=== PATIENT | female | born 1945 | race Caucasian/White ===

== ENCOUNTER 2025-03-05 22:22 | Inpatient (IN) | payer MEDICARE ==
[~2025-03-05] VITALS: Ht 167.6 cm; Wt 59.4 kg
[2025-03-05] MEDS ORDERED: HYDROMORPHONE 1 MG/1 ML DISP.SYRIN ONE ×2 (23:08→23:48)
[2025-03-05] MEDS ORDERED: ONDANSETRON 4 MG/2 ML VIAL ONE (23:09)
[2025-03-05 23:14] LABS: BASOPHILS # (AUTO) 0.1 K/UL (0.0-0.2); BASOPHILS % (AUTO) 0.3 % (0.0-2.0); HEMATOCRIT 38.8 % (31.2-41.9); HEMOGLOBIN 12.8 g/dL (10.9-14.3); LYMPHOCYTES # (AUTO) 1.1 K/uL (0.8-4.8); LYMPHOCYTES % (AUTO) 5.1 % (20.5-51.5); MEAN CORPUSCULAR HEMOGLOBIN 32.7 uug (24.7-32.8); MEAN CORPUSCULAR HGB CONC 33 g/dL (32.3-35.6); MEAN CORPUSCULAR VOLUME 99.5 fL (75.5-95.3); MONOCYTES # (AUTO) 0.8 K/uL (0.1-1.30); NEUTROPHILS # (AUTO) 19.2 K/uL (1.8-8.9); NEUTROPHILS % (AUTO) 90.6 % (38.5-71.5); PLATELET COUNT (AUTO) 604 K/uL (179-408); WHITE BLOOD COUNT (AUTO) 21.2 K/uL (3.8-11.8)
[2025-03-05 23:17] LABS: DIFFERENTIAL COMMENT 1
[2025-03-05] MEDS: ONDANSETRON 4 MG/2 ML VIAL IV ONE (23:19)
[2025-03-05 23:20] LABS: CALCIUM 10.7 mg/dL (8.5-10.1); CARBON DIOXIDE 30 mmol/L (21-32); CHLORIDE 96 mmol/L (98-107); CREATININE 1.2 mg/dL (0.6-1.3); GLUCOSE 144 mg/dL (74-106); POTASSIUM 4.2 mmol/L (3.5-5.1); SODIUM SERUM 139 mmol/L (136-145); UREA NITROGEN, BLOOD 32 mg/dL (7-18)
[2025-03-05] MEDS: IV NORMAL SALINE 1000 ML BAG IV ONE ×2 (23:20→23:55)
[2025-03-05] MEDS: HYDROMORPHONE 1 MG/1 ML DISP.SYRIN IV ONE ×2 (23:20→23:56)
[2025-03-05 23:25] LABS: ALANINE AMINOTRANSFERASE 30 U/L (14-59); ALBUMIN 2.7 g/dL (3.4-5.0); ALKALINE PHOSPHATASE 159 U/L (50-136); ASPARTATE AMINOTRANSFERASE 29 U/L (15-37); BILIRUBIN,DIRECT 0.3 mg/dL (0.0-0.2); BILIRUBIN,TOTAL 0.8 mg/dL (0.2-1.0); LIPASE 16 U/L (16-77); TOTAL PROTEIN, SERUM 8.6 g/dL (6.4-8.2)
[2025-03-05 23:48] LABS: LACTIC ACID 5.1 mmol/L (0.4-2.0)
[2025-03-05] MEDS ORDERED: CEFTRIAXONE /D5W 50ML IVPB **ER PYXIS IV ONE (23:48)
[2025-03-05] MEDS ORDERED: METRONIDAZOLE 500 MG/NS 100ML 100 ML IV ONE (23:48)
[2025-03-05] MEDS: CEFTRIAXONE 1 G in IV DEXTROSE 5% 50 ML IV ONE (23:55)
[2025-03-06] VITALS (26 sets, daily range): BP systolic 108–163; BP diastolic 65–111; TEMP 97.7–98; O2SAT 91–98
[2025-03-06] MEDS: METRONIDAZOLE 500 MG/NS 100 ML PIGGYBACK IV ONE (00:34)
[2025-03-06] MEDS ORDERED: MORPHINE SULFATE 4 MG/1 ML DISP.SYRIN ONE ×2 (00:57→03:38)
[2025-03-06] MEDS: MORPHINE SULFATE 4 MG/1 ML DISP.SYRIN IV ONE ×2 (01:00→03:45)
[2025-03-06 01:01] LABS: *BILIRUBIN,URIN NEGATIVE (NEGATIVE); *BLOOD, URINE NEGATIVE (NEGATIVE); *CLARITY,URINE CLEAR (CLEAR); *COLOR,URINE YELLOW (YELLOW); *KETONES,URINE NEGATIVE (NEGATIVE); *PROTEIN,URINE 2+ (NEGATIVE); *UROBILINOGEN,URINE 0.2 E.U./dl (NORMAL); LEUKOCYTE ESTERASE ,URINE NEGATIVE (NEGATIVE); NITRITE, URINE NEGATIVE (NEGATIVE); UGLUCOSE NEGATIVE (NEGATIVE)
[2025-03-06] MEDS ORDERED: LORAZEPAM 2 MG/1 ML VIAL ONE ×2 (01:49→05:00)
[2025-03-06] MEDS: LORAZEPAM 2 MG/1 ML VIAL IV ONE ×2 (01:51→05:18)
[2025-03-06] MEDS ORDERED: MAGNESIUM HYDROXIDE 30 ML LIQUID UDC PO PRN (03:15)
[2025-03-06] MEDS ORDERED: REMEDY ESSENTIAL ZINC PASTE 113 GM TP PRN (03:15)
[2025-03-06] MEDS ORDERED: METOCLOPRAMIDE HCL 10 MG/2 ML VIAL ONE (03:37)
[2025-03-06] MEDS: METOCLOPRAMIDE HCL 10 MG/2 ML VIAL IV ONE (03:45)
[2025-03-06] MEDS: PIPERACILLIN SODIUM/TAZOBACTAM 3.375 G in IV DEXTROSE 5% 50 ML IV SCH (06:00)
[2025-03-06] MEDS ORDERED: DIGOXIN 500 MCG/2 ML AMP ONE (07:49)
[2025-03-06] MEDS: DIGOXIN 500 MCG/2 ML AMP IV ONE (07:55)
[2025-03-06] MEDS ORDERED: PIPERACILLIN/TAZOBACTAM/D5W 50 ML IV ONE (07:57)
[2025-03-06] MEDS ORDERED: MAGNESIUM SULFATE/D5W 200 ML ONE ×2 (07:58→21:36)
[2025-03-06] MEDS: MAGNESIUM SULFATE/D5W 100 ML IV ONE (08:07)
[2025-03-06] MEDS ORDERED: ONDANSETRON 4 MG/2 ML VIAL ONE (08:56)
[2025-03-06] MEDS ORDERED: MORPHINE SULFATE 2 MG/1 ML DISP.SYRIN ONE (08:56)
[2025-03-06] MEDS: MORPHINE SULFATE 2 MG/1 ML DISP.SYRIN IV ONE (09:01)
[2025-03-06] MEDS: ONDANSETRON 4 MG/2 ML VIAL IV PRN (09:02)
[2025-03-06] MEDS ORDERED: DIATR MEGLU/DIATRIZOATE SODIUM 30 ML BOTTLE ONE (10:23)
[2025-03-06] MEDS ORDERED: DILTIAZEM HCL 25 MG IV ONE (10:24)
[2025-03-06] MEDS ORDERED: ENOXAPARIN SODIUM 40 MG/0.4 ML DISP.SYRIN SQ ONE (10:24)
[2025-03-06] MEDS: ENOXAPARIN SODIUM 40 MG/0.4 ML DISP.SYRIN SQ SCH (10:26)
[2025-03-06] MEDS: DILTIAZEM HCL 25 MG IV IV ONE (10:35)
[2025-03-06] MEDS ORDERED: OMEP40CA21 PO (12:29)
[2025-03-06] MEDS ORDERED: DOXY100C5 PO (12:29)
[2025-03-06] MEDS ORDERED: DOCU100C58 PO (12:29)
[2025-03-06] MEDS ORDERED: CHOL500062 PO (12:29)
[2025-03-06] MEDS ORDERED: ONDA4TAB11 PO (12:29)
[2025-03-06] MEDS ORDERED: SUCR1TAB PO (12:29)
[2025-03-06] MEDS ORDERED: HYDR-3972 PO (12:29)
[2025-03-06] MEDS ORDERED: [UNRECOGNIZED DRUG - OTHER] PO (12:34)
[2025-03-06] MEDS: MORPHINE SULFATE 2 MG/1 ML DISP.SYRIN IV PRN ×2 (13:30→20:48)
[2025-03-06] MEDS: PIPERACILLIN SODIUM/TAZOBACTAM 3.375 G in IV DEXTROSE 5% 100 ML IV SCH (13:49)
[2025-03-06] MEDS: HYDROMORPHONE 1 MG/1 ML DISP.SYRIN IV ONE (14:49)
[2025-03-06] MEDS ORDERED: SWABABLE VALVE TRANSFER SET EA MC ONE (15:47)
[2025-03-06] MEDS ORDERED: IOHEXOL 350 100 ML INFUS..BTL ONE (15:47)
[2025-03-06] MEDS ORDERED: IV NORMAL SALINE 250 ML IV ONE (15:48)
[2025-03-06] MEDS: IV NS 1000 ML 1,000 ML IV PRN ×2 (16:37→20:27)
[2025-03-06 20:23] LABS: CARBON DIOXIDE 26 mmol/L (21-32); CHLORIDE 106 mmol/L (98-107); CREATININE 1.2 mg/dL (0.6-1.3); GLUCOSE 129 mg/dL (74-106); POTASSIUM 4.5 mmol/L (3.5-5.1); SODIUM SERUM 145 mmol/L (136-145); UREA NITROGEN, BLOOD 42 mg/dL (7-18)
[2025-03-06 20:24] LABS: HEMATOCRIT 40.5 % (31.2-41.9); HEMOGLOBIN 13.3 g/dL (10.9-14.3); LYMPHOCYTES # (AUTO) 0.6 K/uL (0.8-4.8); LYMPHOCYTES % (AUTO) 1.9 % (20.5-51.5); MEAN CORPUSCULAR HEMOGLOBIN 32.8 uug (24.7-32.8); MEAN CORPUSCULAR HGB CONC 33 g/dL (32.3-35.6); MEAN CORPUSCULAR VOLUME 99.8 fL (75.5-95.3); MONOCYTES # (AUTO) 0.7 K/uL (0.1-1.30); MONOCYTES % (AUTO) 2.2 % (0.0-11.0); NEUTROPHILS # (AUTO) 30.8 K/uL (1.8-8.9); NEUTROPHILS % (AUTO) 95.9 % (38.5-71.5); PLATELET COUNT (AUTO) 493 K/uL (179-408); RED BLOOD CELL COUNT(AUTO) 4.06 MIL/uL (3.63-4.92); RED CELL DISTRIBUTION WIDTH 14.3 % (12.3-17.7)
[2025-03-06 20:25] LABS: DIFFERENTIAL COMMENT 1
[2025-03-06 20:28] LABS: WHITE BLOOD COUNT (AUTO) 32.1 K/uL (3.8-11.8)
[2025-03-06 21:36] LABS: BAND % (MANUAL) 13 % (0-10); LYMPHOCYTES % (MANUAL) 2 % (20-40); MONOCYTES % (MANUAL) 4 % (2-10); NEUTROPHILS % (MANUAL) 81 % (42-75); PLATELET ESTIMATE INCREASED
[2025-03-06] MEDS ORDERED: FENTANYL CITRATE 250 MCG/5 ML AMPUL ONE (21:36)
[2025-03-06] MEDS ORDERED: KETAMINE HCL 500 MG/5 ML VIAL ONE (21:36)
[2025-03-06] MEDS ORDERED: MIDAZOLAM HCL 2 MG/2 ML VIAL ONE (21:36)
[2025-03-06] MEDS ORDERED: LIDOCAINE 2% (GLYDO= UROJET) 10 ML JELLY MM ONE (21:36)
[2025-03-06 21:37] LABS: ANISOCYTOSIS 1+
[2025-03-06] MEDS ORDERED: ALBUMIN HUMAN 5% 500 ML ONE (21:37)
[2025-03-06] MEDS ORDERED: ROCURONIUM BROMIDE 50 MG/5 ML VIAL ONE (21:37)
[2025-03-06] MEDS ORDERED: MINERAL OIL/PETROLAT OPHT OINT 3.5 GM TUBE ONE (22:12)
[2025-03-06] MEDS ORDERED: CALCIUM GLUCONATE 1 GM/10 ML VIAL IV ONE (22:24)
[2025-03-06] MEDS ORDERED: NOREPINEPHRINE BITARTRATE 4 MG/4 ML VIAL IV ONE (22:24)
[2025-03-06] MEDS ORDERED: CALCIUM CHLORIDE 1 GM/10 ML DISP.SYRIN IVP ONE (22:25)
[2025-03-06] MEDS ORDERED: ALBUMIN HUMAN 5% 250 ML ONE (23:04)
[2025-03-07] VITALS (46 sets, daily range): BP systolic 89–205; BP diastolic 55–104; TEMP 97.5–102.8; O2SAT 97–100
[2025-03-07] MEDS ORDERED: NOREPINEPHRINE 8MG/NS 250ML 250 ML IV PRN ×2 (00:45)
[2025-03-07] MEDS ORDERED: PROPOFOL 100 ML IV PRN (00:45)
[2025-03-07] MEDS: PROPOFOL 100 ML IV PRN ×2 (00:49→20:32)
[2025-03-07] MEDS: IV LACTATED RINGERS SOLUTION 1,000 ML BAG IV ONE (02:48)
[2025-03-07 03:01] LABS: BASOPHILS % (AUTO) 0.2 % (0.0-2.0); EOSINOPHILS % (AUTO) 0.1 % (0.0-7.0); HEMATOCRIT 30.1 % (31.2-41.9); HEMOGLOBIN 10.1 g/dL (10.9-14.3); LYMPHOCYTES # (AUTO) 0.4 K/uL (0.8-4.8); LYMPHOCYTES % (AUTO) 1.7 % (20.5-51.5); MEAN CORPUSCULAR HEMOGLOBIN 33.4 uug (24.7-32.8); MEAN CORPUSCULAR HGB CONC 34 g/dL (32.3-35.6); MEAN CORPUSCULAR VOLUME 99.3 fL (75.5-95.3); MONOCYTES # (AUTO) 0.6 K/uL (0.1-1.30); MONOCYTES % (AUTO) 2.3 % (0.0-11.0); NEUTROPHILS # (AUTO) 25.2 K/uL (1.8-8.9); NEUTROPHILS % (AUTO) 95.7 % (38.5-71.5); PLATELET COUNT (AUTO) 386 K/uL (179-408); RED BLOOD CELL COUNT(AUTO) 3.04 MIL/uL (3.63-4.92); RED CELL DISTRIBUTION WIDTH 14.3 % (12.3-17.7); WHITE BLOOD COUNT (AUTO) 26.3 K/uL (3.8-11.8)
[2025-03-07 03:06] LABS: DIFFERENTIAL COMMENT 1
[2025-03-07] MEDS ORDERED: AMIODARONE HCL 150 MG/3 ML VIAL IV ONE (03:46)
[2025-03-07] MEDS: AMIODARONE HCL IV 150 MG in IV DEXTROSE 5% 100 ML IV ONE (03:56)
[2025-03-07 04:33] LABS: BASOPHILS % (AUTO) 0.1 % (0.0-2.0); HEMATOCRIT 29.6 % (31.2-41.9); HEMOGLOBIN 10.3 g/dL (10.9-14.3); LYMPHOCYTES # (AUTO) 0.5 K/uL (0.8-4.8); LYMPHOCYTES % (AUTO) 1.7 % (20.5-51.5); MEAN CORPUSCULAR HEMOGLOBIN 33.9 uug (24.7-32.8); MEAN CORPUSCULAR HGB CONC 35 g/dL (32.3-35.6); MEAN CORPUSCULAR VOLUME 97.8 fL (75.5-95.3); MONOCYTES # (AUTO) 0.6 K/uL (0.1-1.30); MONOCYTES % (AUTO) 2.1 % (0.0-11.0); NEUTROPHILS # (AUTO) 26.2 K/uL (1.8-8.9); NEUTROPHILS % (AUTO) 96.1 % (38.5-71.5); PLATELET COUNT (AUTO) 402 K/uL (179-408); RED BLOOD CELL COUNT(AUTO) 3.03 MIL/uL (3.63-4.92); RED CELL DISTRIBUTION WIDTH 14.4 % (12.3-17.7); WHITE BLOOD COUNT (AUTO) 27.3 K/uL (3.8-11.8)
[2025-03-07] MEDS: AMIODARONE HCL IV 450 MG in IV DEXTROSE 5% 250 ML IV PRN (04:46)
[2025-03-07 05:11] LABS: DIFFERENTIAL COMMENT 1
[2025-03-07 05:22] LABS: CALCIUM 9.2 mg/dL (8.5-10.1); CARBON DIOXIDE 25 mmol/L (21-32); CHLORIDE 111 mmol/L (98-107); CREATININE 1.2 mg/dL (0.6-1.3); GLUCOSE 115 mg/dL (74-106); MAGNESIUM 2.3 mg/dL (1.8-2.4); PHOSPHOROUS 5.1 mg/dL (2.5-4.9); POTASSIUM 4.4 mmol/L (3.5-5.1); SODIUM SERUM 147 mmol/L (136-145); UREA NITROGEN, BLOOD 40 mg/dL (7-18)
[2025-03-07] MEDS: MORPHINE SULFATE 2 MG/1 ML DISP.SYRIN IV ONE (05:29)
[2025-03-07 05:31] LABS: LACTIC ACID 2.2 mmol/L (0.4-2.0)
[2025-03-07] MEDS: FENTANYL CITRATE/PF 1,000 MCG in IV NORMAL SALINE 80 ML IV PRN ×2 (09:00→09:26)
[2025-03-07] MEDS: PANTOPRAZOLE SODIUM 40 MG VIAL IV SCH (12:11)
[2025-03-07] MEDS: ACETAMINOPHEN 650 MG SUPP.RECT RC PRN (13:47)
[2025-03-07 20:43] LABS: ABG BASE EXCESS 1.6 mmol/L (-2.0-3.0); ABG HCO3 22.5 mmol/L (21.0-28.0); ABG HCO3 24.5 mmol/L (21.0-28.0); ABG PCO2 33.7 mmHg (32.0-45.0); ABG PCO2 41.9 mmHg (32.0-45.0); ABG PH 7.348 (7.350-7.450); ABG PH 7.479 (7.350-7.450); ABG PO2 201.8 mmHg (83.0-108.0); ABG PO2 62.1 mmHg (83.0-108.0); ABG SITE ALINE; ABG SITE RIGHT RADIAL; ABG TOTAL HEMOGLOBIN 15.3 G/dL (12.0-16.0); ABG TOTAL HEMOGLOBIN 9.9 G/dL (12.0-16.0); AaDO2 93.5 mmHg; AaDO2 99.3 mmHg; COHb 1.2 % (0.5-1.5); COHb 2.3 % (0.5-1.5); MetHb 0.3 % (0.0-1.5); O2Hb 90.7 % (94.0-98.0); O2Hb 97.8 % (94.0-98.0); VT, ABG 450 mL
[2025-03-07 20:44] LABS: ABG BASE EXCESS -0.8 mmol/L (-2.0-3.0); ABG HCO3 22.9 mmol/L (21.0-28.0); ABG PCO2 34.2 mmHg (32.0-45.0); ABG PH 7.443 (7.350-7.450); ABG SITE ALINE; ABG TOTAL HEMOGLOBIN 11.2 G/dL (12.0-16.0); AaDO2 98.2 mmHg; COHb 1.1 % (0.5-1.5); MetHb 0.3 % (0.0-1.5); VT, ABG 450 mL
[2025-03-07] MEDS ORDERED: PROPOFOL 200 MG/20 ML BOTTLE ONE (22:00)
[2025-03-07] MEDS ORDERED: MICAFUNGIN SODIUM 100 MG VIAL IV ONE (23:16)
[2025-03-07] MEDS ORDERED: MEROPENEM 1GM/NS 100ML IVPB **ER PYXIS ONLY IV ONE (23:18)
[2025-03-07] MEDS ORDERED: VANCOMYCIN IV 200 ML ONE (23:18)
[2025-03-07] MEDS: MEROPENEM 1 G in IV NORMAL SALINE 100 ML IV SCH (23:23)
[2025-03-07] MEDS: VANCOMYCIN IV 1,000 MG in IV NORMAL SALINE 250 ML IV ONE (23:25)
[2025-03-07] MEDS: MICAFUNGIN SODIUM 100 MG in IV NORMAL SALINE 100 ML IV SCH (23:26)
[2025-03-07] MEDS: MEROPENEM 1 G in IV NORMAL SALINE 100 ML IV ONE (23:44)
[2025-03-08] VITALS (57 sets, daily range): BP systolic 102–183; BP diastolic 73–141; TEMP 97.7–98.8; O2SAT 97–100
[2025-03-08] MEDS: METOPROLOL TARTRATE 5 MG/5 ML VIAL IVP PRN (03:22)
[2025-03-08 04:49] LABS: HEMATOCRIT 26.2 % (31.2-41.9); HEMOGLOBIN 8.6 g/dL (10.9-14.3); LYMPHOCYTES # (AUTO) 0.6 K/uL (0.8-4.8); LYMPHOCYTES % (AUTO) 2.1 % (20.5-51.5); MEAN CORPUSCULAR HEMOGLOBIN 32.9 uug (24.7-32.8); MEAN CORPUSCULAR HGB CONC 33 g/dL (32.3-35.6); MEAN CORPUSCULAR VOLUME 99.5 fL (75.5-95.3); MONOCYTES # (AUTO) 0.8 K/uL (0.1-1.30); MONOCYTES % (AUTO) 2.7 % (0.0-11.0); NEUTROPHILS % (AUTO) 95.2 % (38.5-71.5); PLATELET COUNT (AUTO) 337 K/uL (179-408); RED BLOOD CELL COUNT(AUTO) 2.63 MIL/uL (3.63-4.92); RED CELL DISTRIBUTION WIDTH 14.8 % (12.3-17.7); WHITE BLOOD COUNT (AUTO) 29.4 K/uL (3.8-11.8)
[2025-03-08 05:33] LABS: DIFFERENTIAL COMMENT 1
[2025-03-08 05:42] LABS: CALCIUM 8.6 mg/dL (8.5-10.1); CARBON DIOXIDE 25 mmol/L (21-32); CHLORIDE 114 mmol/L (98-107); CREATININE 0.8 mg/dL (0.6-1.3); GLUCOSE 122 mg/dL (74-106); MAGNESIUM 2.5 mg/dL (1.8-2.4); PHOSPHOROUS 3.4 mg/dL (2.5-4.9); POTASSIUM 4.1 mmol/L (3.5-5.1); SODIUM SERUM 147 mmol/L (136-145); UREA NITROGEN, BLOOD 36 mg/dL (7-18)
[2025-03-08] MEDS: MEROPENEM 1 G in IV NORMAL SALINE 100 ML IV SCH (08:27)
[2025-03-08] MEDS ORDERED: MEROPENEM 1 G in IV NORMAL SALINE 100 ML IV SCH (09:00)
[2025-03-08 09:31] LABS: ABG BASE EXCESS -0.7 mmol/L (-2.0-3.0); ABG HCO3 24.9 mmol/L (21.0-28.0); ABG PO2 117.6 mmHg (83.0-108.0); ABG SITE LEFT RADIAL; ABG TOTAL HEMOGLOBIN 9.5 G/dL (12.0-16.0); AaDO2 98.1 mmHg; COHb 0.7 % (0.5-1.5); MetHb 0.3 % (0.0-1.5); O2Hb 97.6 % (94.0-98.0); VT, ABG 450 mL
[2025-03-08] MEDS: VANCOMYCIN HCL 750 MG in IV DEXTROSE 5% 250 ML IV SCH (09:45)
[2025-03-09] VITALS (96 sets, daily range): BP systolic 89–226; BP diastolic 66–139; TEMP 97.9–99.1; O2SAT 94–98
[2025-03-09 05:09] LABS: BASOPHILS # (AUTO) 0.1 K/UL (0.0-0.2); BASOPHILS % (AUTO) 0.3 % (0.0-2.0); DIFFERENTIAL COMMENT 0; HEMATOCRIT 23.1 % (31.2-41.9); HEMOGLOBIN 7.7 g/dL (10.9-14.3); LYMPHOCYTES # (AUTO) 0.7 K/uL (0.8-4.8); LYMPHOCYTES % (AUTO) 2.8 % (20.5-51.5); MEAN CORPUSCULAR HEMOGLOBIN 33.2 uug (24.7-32.8); MEAN CORPUSCULAR HGB CONC 33 g/dL (32.3-35.6); MONOCYTES # (AUTO) 0.8 K/uL (0.1-1.30); MONOCYTES % (AUTO) 3.2 % (0.0-11.0); NEUTROPHILS # (AUTO) 22.6 K/uL (1.8-8.9); NEUTROPHILS % (AUTO) 93.7 % (38.5-71.5); PLATELET COUNT (AUTO) 317 K/uL (179-408); RED CELL DISTRIBUTION WIDTH 14.7 % (12.3-17.7); WHITE BLOOD COUNT (AUTO) 24.1 K/uL (3.8-11.8)
[2025-03-09 05:12] LABS: CALCIUM 8.1 mg/dL (8.5-10.1); CARBON DIOXIDE 25 mmol/L (21-32); CHLORIDE 118 mmol/L (98-107); CREATININE 0.5 mg/dL (0.6-1.3); GLUCOSE 97 mg/dL (74-106); MAGNESIUM 2.1 mg/dL (1.8-2.4); PHOSPHOROUS 1.9 mg/dL (2.5-4.9); POTASSIUM 4.3 mmol/L (3.5-5.1); SODIUM SERUM 151 mmol/L (136-145); UREA NITROGEN, BLOOD 25 mg/dL (7-18)
[2025-03-09 05:15] LABS: RED BLOOD CELL COUNT(AUTO) 2.31 MIL/uL (3.63-4.92)
[2025-03-09] MEDS ORDERED: MEROPENEM 1 G in IV NORMAL SALINE 100 ML IV SCH ×2 (06:00→07:00)
[2025-03-09] MEDS: MEROPENEM 1 G in IV NORMAL SALINE 100 ML IV SCH (06:59)
[2025-03-09] MEDS: AMIODARONE HCL IV 150 MG in IV DEXTROSE 5% 100 ML IV ONE (09:23)
[2025-03-09] MEDS: AMIODARONE HCL IV 450 MG in IV DEXTROSE 5% 250 ML IV PRN (10:12)
[2025-03-09 11:10] LABS: ABG BASE EXCESS -0.8 mmol/L (-2.0-3.0); ABG HCO3 24.3 mmol/L (21.0-28.0); ABG PCO2 42.2 mmHg (32.0-45.0); ABG PH 7.378 (7.350-7.450); ABG PO2 90.6 mmHg (83.0-108.0); ABG SITE LEFT RADIAL; AaDO2 96.8 mmHg; COHb 0.7 % (0.5-1.5); MetHb 0.3 % (0.0-1.5); O2Hb 96.2 % (94.0-98.0); VT, ABG 450 mL
[2025-03-09] MEDS: ACETAMINOPHEN 325 MG TABLET PO PRN (11:51)
[2025-03-09] MEDS: NOREPINEPHRINE 8MG/NS 250ML 250 ML IV PRN (13:02)
[2025-03-09] MEDS: IV LACTATED RINGERS SOLUTION 1,000 ML BAG IV ONE ×2 (13:57→14:10)
[2025-03-09] MEDS: POTASSIUM PHOSPHATE MM 15 MMOL in IV NORMAL SALINE 250 ML IV ONE (17:21)
[2025-03-09] MEDS: IV D5 1/2 NS 1000 ML 1,000 ML IV PRN (19:39)
[2025-03-10] VITALS (97 sets, daily range): BP systolic 102–202; BP diastolic 70–198; TEMP 97.4–98.5; O2SAT 94–98
[2025-03-10 05:04] LABS: BASOPHILS % (AUTO) 0.2 % (0.0-2.0); EOSINOPHILS # (AUTO) 0.1 K/uL (0.0-0.7); EOSINOPHILS % (AUTO) 0.6 % (0.0-7.0); HEMATOCRIT 25.1 % (31.2-41.9); HEMOGLOBIN 8.4 g/dL (10.9-14.3); LYMPHOCYTES # (AUTO) 0.8 K/uL (0.8-4.8); LYMPHOCYTES % (AUTO) 4.5 % (20.5-51.5); MEAN CORPUSCULAR HEMOGLOBIN 33.3 uug (24.7-32.8); MEAN CORPUSCULAR HGB CONC 33 g/dL (32.3-35.6); MEAN CORPUSCULAR VOLUME 99.6 fL (75.5-95.3); MONOCYTES % (AUTO) 5.9 % (0.0-11.0); NEUTROPHILS # (AUTO) 15.5 K/uL (1.8-8.9); NEUTROPHILS % (AUTO) 88.8 % (38.5-71.5); PLATELET COUNT (AUTO) 310 K/uL (179-408); RED BLOOD CELL COUNT(AUTO) 2.52 MIL/uL (3.63-4.92); RED CELL DISTRIBUTION WIDTH 14.2 % (12.3-17.7); WHITE BLOOD COUNT (AUTO) 17.5 K/uL (3.8-11.8)
[2025-03-10 05:05] LABS: DIFFERENTIAL COMMENT 1
[2025-03-10 05:14] LABS: CALCIUM 7.2 mg/dL (8.5-10.1); CARBON DIOXIDE 26 mmol/L (21-32); CHLORIDE 110 mmol/L (98-107); CREATININE 0.5 mg/dL (0.6-1.3); GLUCOSE 165 mg/dL (74-106); MAGNESIUM 1.8 mg/dL (1.8-2.4); PHOSPHOROUS 2.1 mg/dL (2.5-4.9); POTASSIUM 3.6 mmol/L (3.5-5.1); SODIUM SERUM 145 mmol/L (136-145); UREA NITROGEN, BLOOD 15 mg/dL (7-18)
[2025-03-10 07:32] LABS: ABG BASE EXCESS 0.7 mmol/L (-2.0-3.0); ABG HCO3 24.2 mmol/L (21.0-28.0); ABG PCO2 34.7 mmHg (32.0-45.0); ABG PH 7.461 (7.350-7.450); ABG PO2 73.9 mmHg (83.0-108.0); ABG SITE LEFT BRACHIAL; ABG TOTAL HEMOGLOBIN 10.8 G/dL (12.0-16.0); AaDO2 95.7 mmHg; COHb 0.9 % (0.5-1.5); MetHb 0.3 % (0.0-1.5); O2Hb 94.6 % (94.0-98.0)
[2025-03-10] MEDS: VANCOMYCIN IV 1,000 MG in IV DEXTROSE 5% 250 ML IV SCH (10:44)
[2025-03-10] MEDS ORDERED: TPN AMINO ACID 4.25%/D10% 1,000 ML IV PRN (14:45)
[2025-03-10] MEDS ORDERED: TPN/PPN PER PHARMACY IV PRN (15:00)
[2025-03-10] MEDS ORDERED: INSULIN REGULAR, HUMAN 1000 UNIT/10 ML VIAL SQ PRN (16:00)
[2025-03-10] MEDS ORDERED: DEXTROSE 50% 50 ML DISP.SYRIN IV PRN ×2 (16:00)
[2025-03-10] MEDS ORDERED: BLOOD SUGAR DIAGNOSTIC 1 EACH STRIP VI SCH (18:00)
[2025-03-10] MEDS: BLOOD SUGAR DIAGNOSTIC 1 EACH STRIP VI SCH (18:04)
[2025-03-10] MEDS: TPN BAG #1 IV SCH (18:44)
[2025-03-11] VITALS (105 sets, daily range): BP systolic 94–195; BP diastolic 51–126; TEMP 97–97.8; O2SAT 93–98
[2025-03-11 05:23] LABS: BASOPHILS % (AUTO) 0.1 % (0.0-2.0); EOSINOPHILS # (AUTO) 0.2 K/uL (0.0-0.7); EOSINOPHILS % (AUTO) 1.3 % (0.0-7.0); HEMATOCRIT 28.5 % (31.2-41.9); HEMOGLOBIN 9.4 g/dL (10.9-14.3); LYMPHOCYTES # (AUTO) 0.7 K/uL (0.8-4.8); LYMPHOCYTES % (AUTO) 3.5 % (20.5-51.5); MEAN CORPUSCULAR HEMOGLOBIN 32.7 uug (24.7-32.8); MEAN CORPUSCULAR HGB CONC 33 g/dL (32.3-35.6); MEAN CORPUSCULAR VOLUME 99.3 fL (75.5-95.3); MONOCYTES # (AUTO) 1.1 K/uL (0.1-1.30); MONOCYTES % (AUTO) 5.9 % (0.0-11.0); NEUTROPHILS # (AUTO) 17.3 K/uL (1.8-8.9); NEUTROPHILS % (AUTO) 89.2 % (38.5-71.5); PLATELET COUNT (AUTO) 379 K/uL (179-408); RED BLOOD CELL COUNT(AUTO) 2.87 MIL/uL (3.63-4.92); RED CELL DISTRIBUTION WIDTH 14.1 % (12.3-17.7); WHITE BLOOD COUNT (AUTO) 19.4 K/uL (3.8-11.8)
[2025-03-11 05:32] LABS: CALCIUM 7.3 mg/dL (8.5-10.1); CARBON DIOXIDE 27 mmol/L (21-32); CHLORIDE 108 mmol/L (98-107); CREATININE 0.4 mg/dL (0.6-1.3); GLUCOSE 144 mg/dL (74-106); PHOSPHOROUS 1.9 mg/dL (2.5-4.9); POTASSIUM 3.5 mmol/L (3.5-5.1); SODIUM SERUM 141 mmol/L (136-145); UREA NITROGEN, BLOOD 12 mg/dL (7-18)
[2025-03-11 05:41] LABS: DIFFERENTIAL COMMENT 1
[2025-03-11 07:22] LABS: ABG BASE EXCESS 1.5 mmol/L (-2.0-3.0); ABG HCO3 24.3 mmol/L (21.0-28.0); ABG PCO2 32.5 mmHg (32.0-45.0); ABG PH 7.492 (7.350-7.450); ABG PO2 63.6 mmHg (83.0-108.0); ABG SITE LEFT RADIAL; AaDO2 94.1 mmHg; COHb 1.3 % (0.5-1.5); MetHb 0.3 % (0.0-1.5); O2Hb 92.5 % (94.0-98.0)
[2025-03-11] MEDS: hydrALAZINE HCL 20 MG/1 ML VIAL IV PRN ×2 (08:31→14:31)
[2025-03-11] MEDS ORDERED: IOHEXOL 300MG/ML 100 ML INFUS..BTL ONE (09:44)
[2025-03-11] MEDS ORDERED: SWABABLE VALVE TRANSFER SET EA MC ONE (09:44)
[2025-03-11] MEDS ORDERED: IV NORMAL SALINE 250 ML IV ONE (09:45)
[2025-03-11] MEDS: TPN BAG # 2 IV SCH (11:26)
[2025-03-11] MEDS: INSULIN REGULAR, HUMAN 1000 UNIT/10 ML VIAL SQ PRN (12:33)
[2025-03-11] MEDS: IV FAT EMULSIONS 20% 250 ML IV ONE (15:11)
[2025-03-12] VITALS (94 sets, daily range): BP systolic 103–199; BP diastolic 46–110; TEMP 96.5–97.8; O2SAT 95–98
[2025-03-12] MEDS: TPN BOTTLE #3 IV SCH (03:14)
[2025-03-12 05:08] LABS: BASOPHILS % (AUTO) 0.1 % (0.0-2.0); EOSINOPHILS # (AUTO) 0.2 K/uL (0.0-0.7); EOSINOPHILS % (AUTO) 1.1 % (0.0-7.0); HEMATOCRIT 26.8 % (31.2-41.9); HEMOGLOBIN 8.9 g/dL (10.9-14.3); LYMPHOCYTES # (AUTO) 0.5 K/uL (0.8-4.8); LYMPHOCYTES % (AUTO) 2.7 % (20.5-51.5); MEAN CORPUSCULAR HEMOGLOBIN 32.8 uug (24.7-32.8); MEAN CORPUSCULAR HGB CONC 33 g/dL (32.3-35.6); MEAN CORPUSCULAR VOLUME 98.4 fL (75.5-95.3); MONOCYTES # (AUTO) 1.4 K/uL (0.1-1.30); MONOCYTES % (AUTO) 6.7 % (0.0-11.0); NEUTROPHILS % (AUTO) 89.4 % (38.5-71.5); PLATELET COUNT (AUTO) 472 K/uL (179-408); RED BLOOD CELL COUNT(AUTO) 2.72 MIL/uL (3.63-4.92); RED CELL DISTRIBUTION WIDTH 13.6 % (12.3-17.7); WHITE BLOOD COUNT (AUTO) 20.1 K/uL (3.8-11.8)
[2025-03-12 05:15] LABS: DIFFERENTIAL COMMENT 1
[2025-03-12 05:30] LABS: CALCIUM 7.5 mg/dL (8.5-10.1); CARBON DIOXIDE 29 mmol/L (21-32); CHLORIDE 107 mmol/L (98-107); CREATININE 0.4 mg/dL (0.6-1.3); GLUCOSE 129 mg/dL (74-106); MAGNESIUM 2.2 mg/dL (1.8-2.4); POTASSIUM 3.5 mmol/L (3.5-5.1); SODIUM SERUM 139 mmol/L (136-145); UREA NITROGEN, BLOOD 17 mg/dL (7-18)
[2025-03-12 06:41] LABS: EOSINOPHILS % (MANUAL) 1 % (0-8); LYMPHOCYTES % (MANUAL) 3 % (20-40); MONOCYTES % (MANUAL) 7 % (2-10); MYELOCYTES % 1 % (0-0); NEUTROPHILS % (MANUAL) 88 % (42-75); PLATELET ESTIMATE INCREASED
[2025-03-12 07:37] LABS: ABG BASE EXCESS 2.3 mmol/L (-2.0-3.0); ABG HCO3 25.3 mmol/L (21.0-28.0); ABG PCO2 34.1 mmHg (32.0-45.0); ABG PH 7.489 (7.350-7.450); ABG PO2 69.9 mmHg (83.0-108.0); ABG SITE LEFT RADIAL; ABG TOTAL HEMOGLOBIN 11.5 G/dL (12.0-16.0); AaDO2 95.3 mmHg; COHb 0.8 % (0.5-1.5); MetHb 0.3 % (0.0-1.5); O2Hb 93.9 % (94.0-98.0)
[2025-03-12] MEDS: NICARDIPINE IN NS 200 ML IV PRN (08:21)
[2025-03-12] MEDS: ENOXAPARIN SODIUM 40 MG/0.4 ML DISP.SYRIN SQ SCH (13:13)
[2025-03-12] MEDS: TPN BAG #4 IV SCH (18:29)
[2025-03-13] VITALS (88 sets, daily range): BP systolic 120–168; BP diastolic 64–105; TEMP 97.7–98.7; O2SAT 93–99
[2025-03-13 05:05] LABS: BASOPHILS # (AUTO) 0.2 K/UL (0.0-0.2); BASOPHILS % (AUTO) 0.9 % (0.0-2.0); EOSINOPHILS # (AUTO) 0.1 K/uL (0.0-0.7); EOSINOPHILS % (AUTO) 0.4 % (0.0-7.0); HEMATOCRIT 30.6 % (31.2-41.9); HEMOGLOBIN 10.3 g/dL (10.9-14.3); LYMPHOCYTES # (AUTO) 0.5 K/uL (0.8-4.8); LYMPHOCYTES % (AUTO) 2.3 % (20.5-51.5); MEAN CORPUSCULAR HGB CONC 34 g/dL (32.3-35.6); MEAN CORPUSCULAR VOLUME 98.2 fL (75.5-95.3); MONOCYTES % (AUTO) 5.2 % (0.0-11.0); NEUTROPHILS # (AUTO) 18.3 K/uL (1.8-8.9); NEUTROPHILS % (AUTO) 91.2 % (38.5-71.5); PLATELET COUNT (AUTO) 765 K/uL (179-408); RED BLOOD CELL COUNT(AUTO) 3.12 MIL/uL (3.63-4.92)
[2025-03-13 05:06] LABS: DIFFERENTIAL COMMENT 1
[2025-03-13 05:16] LABS: CALCIUM 8.1 mg/dL (8.5-10.1); CARBON DIOXIDE 29 mmol/L (21-32); CHLORIDE 107 mmol/L (98-107); CREATININE 0.4 mg/dL (0.6-1.3); GLUCOSE 138 mg/dL (74-106); MAGNESIUM 2.2 mg/dL (1.8-2.4); POTASSIUM 3.6 mmol/L (3.5-5.1); SODIUM SERUM 140 mmol/L (136-145); TRIGLYCERIDES 159 MG/DL (30-150); UREA NITROGEN, BLOOD 16 mg/dL (7-18)
[2025-03-13 05:45] LABS: ABG BASE EXCESS 4.1 mmol/L (-2.0-3.0); ABG HCO3 26.9 mmol/L (21.0-28.0); ABG PCO2 33.7 mmHg (32.0-45.0); ABG PO2 83.7 mmHg (83.0-108.0); ABG SITE RIGHT RADIAL; ABG TOTAL HEMOGLOBIN 9.9 G/dL (12.0-16.0); AaDO2 97.2 mmHg; COHb 0.2 % (0.5-1.5); MetHb 0.3 % (0.0-1.5); O2Hb 96.2 % (94.0-98.0); VT, ABG 450 mL
[2025-03-13] MEDS: TPN IV SCH (12:10)
[2025-03-14] VITALS (92 sets, daily range): BP systolic 85–169; BP diastolic 55–136; TEMP 97.4–98.7; O2SAT 90–98
[2025-03-14] MEDS: TPN IV ONE (02:28)
[2025-03-14 05:44] LABS: BASOPHILS % (AUTO) 0.3 % (0.0-2.0); DIFFERENTIAL COMMENT 0; EOSINOPHILS # (AUTO) 0.1 K/uL (0.0-0.7); EOSINOPHILS % (AUTO) 0.6 % (0.0-7.0); HEMATOCRIT 26.9 % (31.2-41.9); HEMOGLOBIN 9.1 g/dL (10.9-14.3); LYMPHOCYTES # (AUTO) 0.5 K/uL (0.8-4.8); LYMPHOCYTES % (AUTO) 3.2 % (20.5-51.5); MEAN CORPUSCULAR HEMOGLOBIN 33.3 uug (24.7-32.8); MEAN CORPUSCULAR HGB CONC 34 g/dL (32.3-35.6); MEAN CORPUSCULAR VOLUME 98.3 fL (75.5-95.3); MONOCYTES # (AUTO) 1.3 K/uL (0.1-1.30); MONOCYTES % (AUTO) 8.1 % (0.0-11.0); NEUTROPHILS # (AUTO) 13.8 K/uL (1.8-8.9); NEUTROPHILS % (AUTO) 87.8 % (38.5-71.5); PLATELET COUNT (AUTO) 723 K/uL (179-408); RED BLOOD CELL COUNT(AUTO) 2.74 MIL/uL (3.63-4.92); RED CELL DISTRIBUTION WIDTH 13.7 % (12.3-17.7); WHITE BLOOD COUNT (AUTO) 15.6 K/uL (3.8-11.8)
[2025-03-14 05:47] LABS: CALCIUM 7.6 mg/dL (8.5-10.1); CARBON DIOXIDE 32 mmol/L (21-32); CHLORIDE 109 mmol/L (98-107); CREATININE 0.4 mg/dL (0.6-1.3); GLUCOSE 133 mg/dL (74-106); MAGNESIUM 2.3 mg/dL (1.8-2.4); PHOSPHOROUS 2.4 mg/dL (2.5-4.9); POTASSIUM 3.7 mmol/L (3.5-5.1); SODIUM SERUM 145 mmol/L (136-145); UREA NITROGEN, BLOOD 18 mg/dL (7-18)
[2025-03-14] MEDS: PRECEDEX 400 MCG/100 ML BOTTLE 100 ML IV PRN (09:29)
[2025-03-14] MEDS: POTASSIUM PHOSPHATE MM 15 MMOL in IV NORMAL SALINE 250 ML IV ONE (10:53)
[2025-03-14] MEDS: CALCIUM GLUCONATE IV 2 GM in IV NORMAL SALINE 100 ML IV ONE (14:27)
[2025-03-14] MEDS: [UNRECOGNIZED DRUG - NUTRITION] IV SCH (15:26)
[2025-03-15] VITALS (97 sets, daily range): BP systolic 124–177; BP diastolic 58–98; TEMP 97.8–99; O2SAT 89–98
[2025-03-15] MEDS ORDERED: TPN BAG #8 IV SCH (05:00)
[2025-03-15] MEDS: TPN BAG # 8 IV SCH (05:59)
[2025-03-15 08:41] LABS: BASOPHILS % (AUTO) 0.3 % (0.0-2.0); DIFFERENTIAL COMMENT 0; EOSINOPHILS % (AUTO) 0.3 % (0.0-7.0); HEMATOCRIT 29.4 % (31.2-41.9); HEMOGLOBIN 9.7 g/dL (10.9-14.3); LYMPHOCYTES # (AUTO) 0.5 K/uL (0.8-4.8); LYMPHOCYTES % (AUTO) 3.7 % (20.5-51.5); MEAN CORPUSCULAR HEMOGLOBIN 32.7 uug (24.7-32.8); MEAN CORPUSCULAR HGB CONC 33 g/dL (32.3-35.6); NEUTROPHILS # (AUTO) 13.1 K/uL (1.8-8.9); NEUTROPHILS % (AUTO) 88.7 % (38.5-71.5); PLATELET COUNT (AUTO) 933 K/uL (179-408); RED BLOOD CELL COUNT(AUTO) 2.97 MIL/uL (3.63-4.92); RED CELL DISTRIBUTION WIDTH 14.2 % (12.3-17.7); WHITE BLOOD COUNT (AUTO) 14.7 K/uL (3.8-11.8)
[2025-03-15 08:50] LABS: CALCIUM 8.6 mg/dL (8.5-10.1); CARBON DIOXIDE 30 mmol/L (21-32); CHLORIDE 111 mmol/L (98-107); CREATININE 0.4 mg/dL (0.6-1.3); GLUCOSE 144 mg/dL (74-106); MAGNESIUM 2.1 mg/dL (1.8-2.4); PHOSPHOROUS 2.2 mg/dL (2.5-4.9); POTASSIUM 3.9 mmol/L (3.5-5.1); SODIUM SERUM 144 mmol/L (136-145); UREA NITROGEN, BLOOD 19 mg/dL (7-18)
[2025-03-15 08:54] LABS: ALBUMIN 1.4 g/dL (3.4-5.0)
[2025-03-15] MEDS: POTASSIUM PHOSPHATE MM 15 MMOL in IV NORMAL SALINE 250 ML IV ONE (10:34)
[2025-03-15] MEDS: METOCLOPRAMIDE HCL 10 MG/2 ML VIAL IV SCH (10:35)
[2025-03-15] MEDS: ALBUMIN HUMAN 25% 50 ML IV ONE (13:59)
[2025-03-15] MEDS: FUROSEMIDE 40 MG/4 ML VIAL IV ONE (15:03)
[2025-03-15] MEDS: TPN BAG #9 IV SCH (18:55)
[2025-03-15] MEDS ORDERED: TPN BAG #9 IV SCH (19:00)
[2025-03-16] VITALS (100 sets, daily range): BP systolic 122–198; BP diastolic 52–81; TEMP 97.3–98.3; O2SAT 96–100
[2025-03-16] MEDS ORDERED: MEROPENEM 1GM/NS 100ML IVPB **ER PYXIS ONLY IV ONE (03:18)
[2025-03-16 05:08] LABS: BASOPHILS # (AUTO) 0.1 K/UL (0.0-0.2); BASOPHILS % (AUTO) 0.6 % (0.0-2.0); EOSINOPHILS # (AUTO) 0.1 K/uL (0.0-0.7); HEMATOCRIT 26.8 % (31.2-41.9); HEMOGLOBIN 9.1 g/dL (10.9-14.3); LYMPHOCYTES # (AUTO) 0.7 K/uL (0.8-4.8); LYMPHOCYTES % (AUTO) 5.3 % (20.5-51.5); MEAN CORPUSCULAR HEMOGLOBIN 33.5 uug (24.7-32.8); MEAN CORPUSCULAR HGB CONC 34 g/dL (32.3-35.6); MEAN CORPUSCULAR VOLUME 98.5 fL (75.5-95.3); MONOCYTES % (AUTO) 8.3 % (0.0-11.0); NEUTROPHILS # (AUTO) 10.5 K/uL (1.8-8.9); NEUTROPHILS % (AUTO) 84.8 % (38.5-71.5); PLATELET COUNT (AUTO) 885 K/uL (179-408); RED BLOOD CELL COUNT(AUTO) 2.72 MIL/uL (3.63-4.92); RED CELL DISTRIBUTION WIDTH 14.1 % (12.3-17.7); WHITE BLOOD COUNT (AUTO) 12.4 K/uL (3.8-11.8)
[2025-03-16 05:14] LABS: DIFFERENTIAL COMMENT 1
[2025-03-16 05:26] LABS: CALCIUM 8.5 mg/dL (8.5-10.1); CARBON DIOXIDE 32 mmol/L (21-32); CHLORIDE 106 mmol/L (98-107); CREATININE 0.5 mg/dL (0.6-1.3); GLUCOSE 136 mg/dL (74-106); PHOSPHOROUS 2.5 mg/dL (2.5-4.9); POTASSIUM 3.6 mmol/L (3.5-5.1); SODIUM SERUM 145 mmol/L (136-145); UREA NITROGEN, BLOOD 19 mg/dL (7-18)
[2025-03-16 05:43] LABS: ABG BASE EXCESS 5.9 mmol/L (-2.0-3.0); ABG HCO3 30.2 mmol/L (21.0-28.0); ABG PCO2 42.7 mmHg (32.0-45.0); ABG PH 7.467 (7.350-7.450); ABG PO2 92.8 mmHg (83.0-108.0); ABG SITE LEFT RADIAL; ABG TOTAL HEMOGLOBIN 9.9 G/dL (12.0-16.0); AaDO2 97.5 mmHg; COHb 0.3 % (0.5-1.5); MetHb 0.3 % (0.0-1.5); O2Hb 96.4 % (94.0-98.0); VT, ABG 450 mL
[2025-03-16] MEDS: TPN BAG # 10 IV SCH (08:22)
[2025-03-16] MEDS ORDERED: ENOXAPARIN SODIUM 40 MG/0.4 ML DISP.SYRIN SQ SCH (09:00)
[2025-03-16 09:01] LABS: ABG BASE EXCESS 3.5 mmol/L (-2.0-3.0); ABG HCO3 26.8 mmol/L (21.0-28.0); ABG PCO2 35.8 mmHg (32.0-45.0); ABG PH 7.492 (7.350-7.450); ABG PO2 89.2 mmHg (83.0-108.0); ABG SITE LEFT RADIAL; ABG TOTAL HEMOGLOBIN 11.1 G/dL (12.0-16.0); AaDO2 97.4 mmHg; COHb 0.8 % (0.5-1.5); MetHb 0.3 % (0.0-1.5); O2Hb 95.9 % (94.0-98.0); VT, ABG 450 mL
[2025-03-16] MEDS ORDERED: DC PROPOFOL ONCE EXTUBATED XX PRN (09:15)
[2025-03-16] MEDS ORDERED: ALBUTEROL SULFATE 2.5 MG/3 ML NEBU NEB PRN (09:15)
[2025-03-16] MEDS: LOSARTAN POTASSIUM 50 MG TABLET PO SCH (09:22)
[2025-03-16] MEDS: POTASSIUM PHOSPHATE MM 15 MMOL in IV NORMAL SALINE 250 ML IV ONE (10:17)
[2025-03-16] MEDS: FUROSEMIDE 20 MG/2 ML VIAL IV SCH (10:18)
[2025-03-16] MEDS: POTASSIUM CHLORIDE 50 ML IV SCH (10:18)
[2025-03-16] MEDS: HYDROCODONE/APAP 10-325 MG TABLET PO PRN (13:32)
[2025-03-16] MEDS: TPN BAG #11 IV SCH (19:09)
[2025-03-16] MEDS: AMLODIPINE 5 MG TABLET PO SCH (20:16)
[2025-03-16] MEDS: ENOXAPARIN SODIUM 60 MG/0.6 ML DISP.SYRIN SQ SCH (20:17)
[2025-03-16] MEDS: MORPHINE SULFATE 2 MG/1 ML DISP.SYRIN IV ONE (21:38)
[2025-03-16] MEDS ORDERED: TPN BAG #11 IV SCH (23:00)
[2025-03-16] MEDS: TRAZODONE 50 MG TABLET PO SCH (23:06)
[2025-03-17] VITALS (96 sets, daily range): BP systolic 117–190; BP diastolic 57–106; TEMP 97.6–98.5; O2SAT 75–100
[2025-03-17 05:16] LABS: BASOPHILS # (AUTO) 0.1 K/UL (0.0-0.2); LYMPHOCYTES # (AUTO) 0.5 K/uL (0.8-4.8); WHITE BLOOD COUNT (AUTO) 13.9 K/uL (3.8-11.8)
[2025-03-17 05:18] LABS: BASOPHILS % (AUTO) 0.4 % (0.0-2.0); EOSINOPHILS # (AUTO) 0.2 K/uL (0.0-0.7); EOSINOPHILS % (AUTO) 1.1 % (0.0-7.0); HEMATOCRIT 28.9 % (31.2-41.9); HEMOGLOBIN 9.8 g/dL (10.9-14.3); LYMPHOCYTES % (AUTO) 3.4 % (20.5-51.5); MEAN CORPUSCULAR HEMOGLOBIN 32.9 uug (24.7-32.8); MEAN CORPUSCULAR HGB CONC 34 g/dL (32.3-35.6); MEAN CORPUSCULAR VOLUME 96.5 fL (75.5-95.3); MONOCYTES # (AUTO) 1.1 K/uL (0.1-1.30); MONOCYTES % (AUTO) 7.9 % (0.0-11.0); NEUTROPHILS # (AUTO) 12.1 K/uL (1.8-8.9); NEUTROPHILS % (AUTO) 87.2 % (38.5-71.5); RED BLOOD CELL COUNT(AUTO) 2.99 MIL/uL (3.63-4.92); RED CELL DISTRIBUTION WIDTH 13.9 % (12.3-17.7)
[2025-03-17 05:25] LABS: TRIGLYCERIDES 171 MG/DL (30-150)
[2025-03-17 05:34] LABS: DIFFERENTIAL COMMENT 1
[2025-03-17 05:36] LABS: PLATELET COUNT (AUTO) 1003 K/uL (179-408)
[2025-03-17 05:40] LABS: CALCIUM 8.7 mg/dL (8.5-10.1); CARBON DIOXIDE 30 mmol/L (21-32); CHLORIDE 106 mmol/L (98-107); CREATININE 0.5 mg/dL (0.6-1.3); GLUCOSE 143 mg/dL (74-106); MAGNESIUM 2.1 mg/dL (1.8-2.4); PHOSPHOROUS 2.2 mg/dL (2.5-4.9); SODIUM SERUM 142 mmol/L (136-145); UREA NITROGEN, BLOOD 19 mg/dL (7-18)
[2025-03-17 07:36] LABS: ABG BASE EXCESS 6.8 mmol/L (-2.0-3.0); ABG HCO3 31.4 mmol/L (21.0-28.0); ABG PCO2 44.7 mmHg (32.0-45.0); ABG PH 7.464 (7.350-7.450); ABG SITE RIGHT RADIAL; ABG TOTAL HEMOGLOBIN 10.6 G/dL (12.0-16.0); COHb 0.1 % (0.5-1.5); MetHb 0.3 % (0.0-1.5); O2Hb 98.7 % (94.0-98.0)
[2025-03-17] MEDS: hydrALAZINE HCL 25 MG TABLET PO SCH (08:14)
[2025-03-17] MEDS: POTASSIUM PHOSPHATE MM 15 MMOL in IV NORMAL SALINE 250 ML IV ONE (09:00)
[2025-03-17] MEDS: TPN BAG #12 IV SCH (10:11)
[2025-03-17] MEDS ORDERED: WEAN OF TPN 1 EA EACH IV PRN (14:45)
[2025-03-17] MEDS: GLUCERNA SHAKE 237 ML CAN PO SCH (17:18)
[2025-03-17] MEDS: IV D5W 1000ML 1,000 ML IV PRN (18:38)
[2025-03-17] MEDS: AMLODIPINE 10 MG TABLET PO SCH (20:23)
[2025-03-17] MEDS ORDERED: AMLODIPINE 5 MG TABLET PO SCH (21:00)
[2025-03-18] VITALS (38 sets, daily range): BP systolic 116–153; BP diastolic 65–96; TEMP 97.5–98; O2SAT 96–100
[2025-03-18 05:12] LABS: BASOPHILS # (AUTO) 0.1 K/UL (0.0-0.2); BASOPHILS % (AUTO) 0.6 % (0.0-2.0); DIFFERENTIAL COMMENT 0; EOSINOPHILS # (AUTO) 0.1 K/uL (0.0-0.7); EOSINOPHILS % (AUTO) 0.6 % (0.0-7.0); HEMOGLOBIN 10.3 g/dL (10.9-14.3); LYMPHOCYTES # (AUTO) 0.6 K/uL (0.8-4.8); LYMPHOCYTES % (AUTO) 4.7 % (20.5-51.5); MEAN CORPUSCULAR HEMOGLOBIN 33.8 uug (24.7-32.8); MEAN CORPUSCULAR HGB CONC 34 g/dL (32.3-35.6); MEAN CORPUSCULAR VOLUME 98.2 fL (75.5-95.3); MONOCYTES # (AUTO) 0.8 K/uL (0.1-1.30); MONOCYTES % (AUTO) 6.1 % (0.0-11.0); NEUTROPHILS # (AUTO) 11.8 K/uL (1.8-8.9); RED BLOOD CELL COUNT(AUTO) 3.05 MIL/uL (3.63-4.92); RED CELL DISTRIBUTION WIDTH 13.7 % (12.3-17.7); WHITE BLOOD COUNT (AUTO) 13.4 K/uL (3.8-11.8)
[2025-03-18 05:16] LABS: PLATELET COUNT (AUTO) 1108 K/uL (179-408)
[2025-03-18 05:17] LABS: CARBON DIOXIDE 33 mmol/L (21-32); CHLORIDE 100 mmol/L (98-107); CREATININE 0.4 mg/dL (0.6-1.3); GLUCOSE 111 mg/dL (74-106); MAGNESIUM 1.9 mg/dL (1.8-2.4); PHOSPHOROUS 2.4 mg/dL (2.5-4.9); POTASSIUM 3.9 mmol/L (3.5-5.1); SODIUM SERUM 138 mmol/L (136-145); UREA NITROGEN, BLOOD 15 mg/dL (7-18)
[2025-03-18] MEDS: CARVEDILOL 6.25 MG TABLET PO SCH (08:43)
[2025-03-18] MEDS: FUROSEMIDE 20 MG/2 ML VIAL IV SCH (08:44)
[2025-03-18] MEDS: APIXABAN 5 MG TABLET PO SCH (08:46)
[2025-03-18] MEDS: POTASSIUM PHOSPHATE MM 15 MMOL in IV NORMAL SALINE 250 ML IV ONE (08:49)
[2025-03-18] MEDS: TRAMADOL HCL 50 MG TABLET PO PRN (13:36)
[2025-03-18] MEDS ORDERED: NALOXONE HCL 0.4 MG/ML AMPUL IV PRN (16:45)
[2025-03-18] MEDS: OXYCODONE HCL 10 MG TAB.SR.12H PO SCH (20:10)
[2025-03-18] MEDS ORDERED: OXYCODONE HCL 10 MG TAB.SR.12H PO SCH (21:00)
[2025-03-19] VITALS (18 sets, daily range): BP systolic 109–130; BP diastolic 66–78; TEMP 97.4–98.4; O2SAT 96–100
[2025-03-19 05:03] LABS: BASOPHILS # (AUTO) 0.1 K/UL (0.0-0.2); HEMOGLOBIN 10.4 g/dL (10.9-14.3); LYMPHOCYTES # (AUTO) 0.7 K/uL (0.8-4.8); LYMPHOCYTES % (AUTO) 7.1 % (20.5-51.5); MONOCYTES # (AUTO) 0.8 K/uL (0.1-1.30); RED BLOOD CELL COUNT(AUTO) 3.13 MIL/uL (3.63-4.92)
[2025-03-19 05:05] LABS: BASOPHILS % (AUTO) 0.5 % (0.0-2.0); EOSINOPHILS % (AUTO) 0.5 % (0.0-7.0); HEMATOCRIT 30.2 % (31.2-41.9); MEAN CORPUSCULAR HEMOGLOBIN 33.4 uug (24.7-32.8); MEAN CORPUSCULAR HGB CONC 35 g/dL (32.3-35.6); MEAN CORPUSCULAR VOLUME 96.6 fL (75.5-95.3); MONOCYTES % (AUTO) 7.6 % (0.0-11.0); NEUTROPHILS # (AUTO) 8.4 K/uL (1.8-8.9); NEUTROPHILS % (AUTO) 84.3 % (38.5-71.5); PLATELET COUNT (AUTO) 999 K/uL (179-408); RED CELL DISTRIBUTION WIDTH 13.8 % (12.3-17.7)
[2025-03-19 05:15] LABS: CALCIUM 8.9 mg/dL (8.5-10.1); CARBON DIOXIDE 32 mmol/L (21-32); CHLORIDE 103 mmol/L (98-107); CREATININE 0.5 mg/dL (0.6-1.3); DIFFERENTIAL COMMENT 1; GLUCOSE 90 mg/dL (74-106); MAGNESIUM 2.1 mg/dL (1.8-2.4); PHOSPHOROUS 2.9 mg/dL (2.5-4.9); POTASSIUM 4.1 mmol/L (3.5-5.1); SODIUM SERUM 140 mmol/L (136-145); UREA NITROGEN, BLOOD 23 mg/dL (7-18)
[2025-03-19] MEDS: PANTOPRAZOLE SODIUM 40 MG TABLET.DR PO SCH (06:06)
[2025-03-19 06:16] LABS: NEUTROPHILS % (MANUAL) 0 % (42-75)
[2025-03-19] MEDS ORDERED: SIMETHICONE 80 MG TAB.CHEW PO PRN (10:00)
[2025-03-19] MEDS: FAMOTIDINE 20 MG TABLET PO SCH (10:22)
[2025-03-19] MEDS: OXYCODONE/APAP 5-325 MG TABLET PO PRN (15:42)
[2025-03-19] MEDS: ENSURE CLEAR 240 ML LIQUID (MIX BERRY) PO SCH (17:00)
[2025-03-19] MEDS ORDERED: FAMOTIDINE 20 MG TABLET PO ONE (19:15)
[2025-03-19] MEDS: FAMOTIDINE 20 MG TABLET PO ONE (19:29)
[2025-03-20] VITALS: BP 116/71; TEMP 97.7; O2SAT 99
[2025-03-20 04:38] VITALS: BP 102/61; TEMP 97.5; O2SAT 98
[2025-03-20 07:38] LABS: BASOPHILS # (AUTO) 0.1 K/UL (0.0-0.2); BASOPHILS % (AUTO) 1.6 % (0.0-2.0); EOSINOPHILS # (AUTO) 0.1 K/uL (0.0-0.7); EOSINOPHILS % (AUTO) 0.6 % (0.0-7.0); HEMATOCRIT 29.2 % (31.2-41.9); HEMOGLOBIN 9.9 g/dL (10.9-14.3); LYMPHOCYTES # (AUTO) 0.6 K/uL (0.8-4.8); LYMPHOCYTES % (AUTO) 6.6 % (20.5-51.5); MEAN CORPUSCULAR HEMOGLOBIN 33.3 uug (24.7-32.8); MEAN CORPUSCULAR HGB CONC 34 g/dL (32.3-35.6); MEAN CORPUSCULAR VOLUME 98.4 fL (75.5-95.3); MONOCYTES # (AUTO) 0.7 K/uL (0.1-1.30); NEUTROPHILS # (AUTO) 7.3 K/uL (1.8-8.9); NEUTROPHILS % (AUTO) 83.2 % (38.5-71.5); PLATELET COUNT (AUTO) 942 K/uL (179-408); RED BLOOD CELL COUNT(AUTO) 2.97 MIL/uL (3.63-4.92); RED CELL DISTRIBUTION WIDTH 13.8 % (12.3-17.7); WHITE BLOOD COUNT (AUTO) 8.8 K/uL (3.8-11.8)
[2025-03-20 07:39] LABS: CALCIUM 8.1 mg/dL (8.5-10.1); CARBON DIOXIDE 31 mmol/L (21-32); CHLORIDE 102 mmol/L (98-107); CREATININE 0.6 mg/dL (0.6-1.3); GLUCOSE 87 mg/dL (74-106); MAGNESIUM 2.2 mg/dL (1.8-2.4); PHOSPHOROUS 3.1 mg/dL (2.5-4.9); POTASSIUM 4.1 mmol/L (3.5-5.1); SODIUM SERUM 138 mmol/L (136-145); UREA NITROGEN, BLOOD 24 mg/dL (7-18)
[2025-03-20 07:44] VITALS: BP 111/69; TEMP 98.5; O2SAT 96
[2025-03-20 07:44] LABS: DIFFERENTIAL COMMENT 1
[2025-03-20] MEDS ORDERED: SUCRALFATE 1 G TABLET PO PRN (10:15)
[2025-03-20] MEDS ORDERED: AMLO10TA59 PO (11:19)
[2025-03-20] MEDS ORDERED: CARV6.252 PO (11:19)
[2025-03-20] MEDS ORDERED: FAMO20TA8 PO (11:19)
[2025-03-20] MEDS ORDERED: APIX5TAB PO (11:19)
[2025-03-20] MEDS ORDERED: ACET650S13 RC (11:19)
[2025-03-20] MEDS ORDERED: LACT296L PO (11:19)
[2025-03-20] MEDS ORDERED: SIME80TA16 PO (11:19)
[2025-03-20] MEDS ORDERED: CHOL100062 PO (11:19)
[2025-03-20] MEDS ORDERED: TRAM50TA2 PO (11:19)
[2025-03-20] MEDS ORDERED: LOSA50TA3 PO (11:19)
[2025-03-20] MEDS ORDERED: Oxycodone/Apap 5-325 Mg PO (11:19)
[2025-03-20] MEDS ORDERED: TRAZ-252 PO (11:19)
[2025-03-20] MEDS ORDERED: Oxycodone Sr PO (11:19)
[2025-03-20 11:41] VITALS: BP 102/58; TEMP 97.9; O2SAT 96
[2025-03-20] MEDS: MEDIHONEY= THERAHONEY 1.5 OZ TUBE TOP SCH (12:49)
[2025-03-21] MEDS ORDERED: Medication Not On Formulary EA (Cholecalciferol (Vitamin D3) (Vitamin D3) 1 TAB) PO SCH (09:00)
[2025-03-21] MEDS ORDERED: CHOLECALCIFEROL 1,000 UNIT TABLET PO SCH (09:00)
== END 2025-03-20 14:56 | DRG 853 ==
LOC: ER 22:26 → ICU IN 03-06 10:15 → CCU 03-06 10:25 → TELE3 03-19 17:30
PROVIDERS: ADMIT Nurse Practitioner Acute Care; ATTEND Nurse Practitioner Acute Care
PROC: 0DN80ZZ Release Small Intestine, Open Approach (ICD-10-PCS; 2025-03-06)
PROC: 05HC33Z Insertion of Infusion Device into Left Basilic Vein, Percutaneous Approach (ICD-10-PCS; 2025-03-06)
PROC: 0W9G0ZZ Drainage of Peritoneal Cavity, Open Approach (ICD-10-PCS; 2025-03-06)
PROC: 0D1N0Z4 Bypass Sigmoid Colon to Cutaneous, Open Approach (ICD-10-PCS; principal; 2025-03-06 22:00)
PROC: 5A1955Z Respiratory Ventilation, Greater than 96 Consecutive Hours (ICD-10-PCS; 2025-03-07)
PROC: 02HV33Z Insertion of Infusion Device into Superior Vena Cava, Percutaneous Approach (ICD-10-PCS; 2025-03-10)
DX: A41.50 Gram-negative sepsis, unspecified (principal); E43 Unspecified severe protein-calorie malnutrition; K65.1 Peritoneal abscess; R65.21 Severe sepsis with septic shock; J96.01 Acute respiratory failure with hypoxia; I16.1 Hypertensive emergency; I47.10 Supraventricular tachycardia, unspecified; E87.0 Hyperosmolality and hypernatremia; I48.4 Atypical atrial flutter; K57.20 Diverticulitis of large intestine with perforation and abscess without bleeding; Z16.12 Extended spectrum beta lactamase (ESBL) resistance; F03.918 Unspecified dementia, unspecified severity, with other behavioral disturbance; K56.50 Intestinal adhesions [bands], unspecified as to partial versus complete obstruction; J90 Pleural effusion, not elsewhere classified; D75.839 Thrombocytosis, unspecified; B96.6 Bacteroides fragilis [B. fragilis] as the cause of diseases classified elsewhere; Z90.49 Acquired absence of other specified parts of digestive tract; E88.09 Other disorders of plasma-protein metabolism, not elsewhere classified; B96.20 Unspecified Escherichia coli [E. coli] as the cause of diseases classified elsewhere; R79.89 Other specified abnormal findings of blood chemistry; G47.00 Insomnia, unspecified; I10 Essential (primary) hypertension; N32.89 Other specified disorders of bladder; D64.9 Anemia, unspecified; Z66 Do not resuscitate
CPT/HCPCS: 36415; 36569; 36600; 70030-TC; 71045; 74250; 82803; 83605; 83690; 83735; 84100; 84478; 84484; 85025; 85730; 87040; 87077; 87086; 93005; 93880; 94002; 94003; 94760; 99082-TC; A4606; A4649; A4663; A6213; G0378; J0282; J0360; J0612; J0690; J0696; J1100; J1160; J1171; J1650; J1815; J1938; J2060; J2185; J2248; J2250; J2270; J2405; J2470; J2543; J2765; J3010; J3370; J3475; J3480; J3490; J7040; J7050; J7070; J7120; J7131; P9045; P9047; Q9963; Q9967

== ENCOUNTER 2025-03-19 12:11 | Inpatient (IN) | payer MEDICARE ==
[~2025-03-19] VITALS: Ht 167.6 cm; Wt 59.4 kg
[~2025-03-19 12:11] MED LIST: CHOL500062 PO; DOCU100C58 PO; DOXY100C5 PO; HYDR-3972 PO; OMEP40CA21 PO; ONDA4TAB11 PO; SUCR1TAB PO; [UNRECOGNIZED DRUG - OTHER] PO
[2025-03-20 10:19] VITALS: BP 111/69; TEMP 98.5
[2025-03-20 10:46] VITALS: BP 111/69; TEMP 98.5
[2025-03-20] MEDS ORDERED: TRAM50TA2 PO (11:19)
[2025-03-20] MEDS ORDERED: ACET650S13 RC (11:19)
[2025-03-20] MEDS ORDERED: Oxycodone/Apap 5-325 Mg PO (11:19)
[2025-03-20] MEDS ORDERED: TRAZ-252 PO (11:19)
[2025-03-20] MEDS ORDERED: LOSA50TA3 PO (11:19)
[2025-03-20] MEDS ORDERED: CHOL100062 PO (11:19)
[2025-03-20] MEDS ORDERED: FAMO20TA8 PO (11:19)
[2025-03-20] MEDS ORDERED: AMLO10TA59 PO (11:19)
[2025-03-20] MEDS ORDERED: SIME80TA16 PO (11:19)
[2025-03-20] MEDS ORDERED: Oxycodone Sr PO (11:19)
[2025-03-20] MEDS ORDERED: LACT296L PO (11:19)
[2025-03-20] MEDS ORDERED: CARV6.252 PO (11:19)
[2025-03-20] MEDS ORDERED: APIX5TAB PO (11:19)
[2025-03-20 16:04] VITALS: TEMP 98.2
[2025-03-20 17:47] VITALS: O2SAT 96
[2025-03-20] MEDS ORDERED: DOCUSATE SODIUM 100 MG CAPSULE PO PRN (18:15)
[2025-03-20] MEDS ORDERED: ACETAMINOPHEN 650 MG SUPP.RECT RC PRN (18:15)
[2025-03-20] MEDS ORDERED: TRAMADOL HCL 50 MG TABLET PO PRN (18:15)
[2025-03-20] MEDS: OXYCODONE/APAP 5-325 MG TABLET PO PRN (19:16)
[2025-03-20] MEDS: FAMOTIDINE 20 MG TABLET PO ONE (20:14)
[2025-03-20] MEDS: MORPHINE SULFATE 2 MG/1 ML DISP.SYRIN IV ONE (20:14)
[2025-03-20 20:16] VITALS: BP 108/61; TEMP 97.9; O2SAT 97
[2025-03-20] MEDS: OXYCODONE HCL 10 MG TAB.SR.12H PO SCH (21:00)
[2025-03-20] MEDS ORDERED: MORPHINE SULFATE 2 MG/1 ML DISP.SYRIN IV PRN (21:30)
[2025-03-20] MEDS: AMLODIPINE 10 MG TABLET PO SCH (22:04)
[2025-03-20] MEDS: TRAZODONE 50 MG TABLET PO SCH (22:04)
[2025-03-20] MEDS: APIXABAN 5 MG TABLET PO SCH (22:06)
[2025-03-21 05:15] VITALS: BP 131/76; TEMP 97.6; O2SAT 93
[2025-03-21] MEDS: FAMOTIDINE 20 MG TABLET PO SCH (05:43)
[2025-03-21 05:46] VITALS: O2SAT 96
[2025-03-21] MEDS: FAMOTIDINE 20 MG TABLET ONE (05:47)
[2025-03-21 08:00] VITALS: BP 123/58; TEMP 98.3; O2SAT 94
[2025-03-21] MEDS: CHOLECALCIFEROL 1,000 UNIT TABLET PO SCH (08:53)
[2025-03-21] MEDS: SUCRALFATE 1 G TABLET PO PRN (08:53)
[2025-03-21] MEDS: CARVEDILOL 6.25 MG TABLET PO SCH (08:54)
[2025-03-21] MEDS: ENSURE CLEAR 240 ML LIQUID (MIX BERRY) PO SCH (08:54)
[2025-03-21] MEDS: LOSARTAN POTASSIUM 50 MG TABLET PO SCH (08:56)
[2025-03-21] MEDS ORDERED: NALOXONE HCL 0.4 MG/ML AMPUL IV PRN (10:45)
[2025-03-21] MEDS: HYDROMORPHONE HCL 2 MG TABLET PO PRN (11:02)
[2025-03-21] MEDS: OXYCODONE HCL 20 MG TAB.SR.12H PO SCH (13:52)
[2025-03-21 16:20] VITALS: BP 125/74; TEMP 97.9; O2SAT 93
[2025-03-21 21:00] VITALS: BP 127/76; TEMP 97.6; O2SAT 96
[2025-03-21] MEDS: DOCUSATE SODIUM 100 MG CAPSULE PO SCH (21:23)
[2025-03-22 07:16] VITALS: BP 119/62; TEMP 97.2; O2SAT 96
[2025-03-22 08:18] LABS: BASOPHILS % (AUTO) 0.3 % (0.0-2.0); EOSINOPHILS % (AUTO) 0.2 % (0.0-7.0); HEMATOCRIT 30.3 % (31.2-41.9); HEMOGLOBIN 10.3 g/dL (10.9-14.3); LYMPHOCYTES # (AUTO) 0.7 K/uL (0.8-4.8); LYMPHOCYTES % (AUTO) 6.3 % (20.5-51.5); MEAN CORPUSCULAR HEMOGLOBIN 33.5 uug (24.7-32.8); MEAN CORPUSCULAR HGB CONC 34 g/dL (32.3-35.6); MEAN CORPUSCULAR VOLUME 98.6 fL (75.5-95.3); MONOCYTES # (AUTO) 0.8 K/uL (0.1-1.30); NEUTROPHILS # (AUTO) 10.1 K/uL (1.8-8.9); NEUTROPHILS % (AUTO) 86.2 % (38.5-71.5); PLATELET COUNT (AUTO) 779 K/uL (179-408); RED BLOOD CELL COUNT(AUTO) 3.07 MIL/uL (3.63-4.92); RED CELL DISTRIBUTION WIDTH 13.7 % (12.3-17.7); WHITE BLOOD COUNT (AUTO) 11.7 K/uL (3.8-11.8)
[2025-03-22 08:21] LABS: DIFFERENTIAL COMMENT 1
[2025-03-22 08:29] LABS: CALCIUM 8.6 mg/dL (8.5-10.1); CARBON DIOXIDE 30 mmol/L (21-32); CHLORIDE 100 mmol/L (98-107); CREATININE 0.5 mg/dL (0.6-1.3); GLUCOSE 100 mg/dL (74-106); MAGNESIUM 2.2 mg/dL (1.8-2.4); PHOSPHOROUS 3.2 mg/dL (2.5-4.9); POTASSIUM 4.1 mmol/L (3.5-5.1); SODIUM SERUM 136 mmol/L (136-145); UREA NITROGEN, BLOOD 16 mg/dL (7-18)
[2025-03-22 08:40] VITALS: TEMP 97.2
[2025-03-22] MEDS: ONDANSETRON 4 MG/2 ML VIAL IV PRN (12:26)
[2025-03-22 16:00] VITALS: TEMP 97.9
[2025-03-22] MEDS: METOCLOPRAMIDE HCL 10 MG TABLET PO SCH (16:49)
[2025-03-22 20:29] VITALS: BP 108/57; TEMP 97.8; O2SAT 95
[2025-03-22] MEDS: AMLODIPINE 5 MG TABLET PO SCH (20:57)
[2025-03-22] MEDS: OXYCODONE HCL 20 MG TAB.SR.12H PO SCH (22:00)
[2025-03-22 22:37] LABS: *BILIRUBIN,URIN NEGATIVE (NEGATIVE); *BLOOD, URINE 3+ (NEGATIVE); *CLARITY,URINE CLOUDY (CLEAR); *COLOR,URINE AMBER (YELLOW); *KETONES,URINE NEGATIVE (NEGATIVE); *UROBILINOGEN,URINE 0.2 E.U./dl (NORMAL); LEUKOCYTE ESTERASE ,URINE TRACE (NEGATIVE); NITRITE, URINE NEGATIVE (NEGATIVE); UGLUCOSE TRACE (NEGATIVE)
[2025-03-22 22:39] LABS: *PROTEIN,URINE 3+ (NEGATIVE)
[2025-03-22 23:41] LABS: BACTERIA,URINE FEW /HPF (NONE SEEN); RBC,URINE TNTC /HPF (0-3)
[2025-03-22 23:46] LABS: CALCIUM OXALATE CRYSTALS,UR FEW /HPF (NONE SEEN); SQUAMOUS EPITHELIAL CELL,UR FEW /HPF (NONE SEEN)
[2025-03-22 23:47] LABS: URINE AMORPHOUS URATE FEW /HPF
[2025-03-23 06:43] VITALS: BP 110/62; TEMP 97.6; O2SAT 96
[2025-03-23 08:00] VITALS: TEMP 97.7
[2025-03-23] MEDS: OXYCODONE HCL 5 MG TABLET PO PRN (08:34)
[2025-03-23 16:14] VITALS: TEMP 97.6
[2025-03-23 16:56] VITALS: TEMP 97.6
[2025-03-23] MEDS: ARGININE/GLUTAMINE/CALCIUM BMB 1 EACH POWD.PACK PO SCH (17:21)
[2025-03-23 20:39] VITALS: BP 100/58; TEMP 98.2; O2SAT 98
[2025-03-24 06:54] VITALS: BP 102/61; TEMP 98.6; O2SAT 96
[2025-03-24 07:50] LABS: ALBUMIN 1.9 g/dL (3.4-5.0); CALCIUM 8.1 mg/dL (8.5-10.1); CARBON DIOXIDE 28 mmol/L (21-32); CHLORIDE 98 mmol/L (98-107); CREATININE 0.6 mg/dL (0.6-1.3); GLUCOSE 94 mg/dL (74-106); MAGNESIUM 1.8 mg/dL (1.8-2.4); PHOSPHOROUS 2.8 mg/dL (2.5-4.9); POTASSIUM 4.4 mmol/L (3.5-5.1); SODIUM SERUM 135 mmol/L (136-145); UREA NITROGEN, BLOOD 17 mg/dL (7-18)
[2025-03-24 07:51] LABS: BASOPHILS % (AUTO) 0.4 % (0.0-2.0); EOSINOPHILS % (AUTO) 0.3 % (0.0-7.0); HEMATOCRIT 26.7 % (31.2-41.9); HEMOGLOBIN 9.2 g/dL (10.9-14.3); LYMPHOCYTES # (AUTO) 0.6 K/uL (0.8-4.8); LYMPHOCYTES % (AUTO) 5.4 % (20.5-51.5); MEAN CORPUSCULAR HEMOGLOBIN 33.6 uug (24.7-32.8); MEAN CORPUSCULAR HGB CONC 35 g/dL (32.3-35.6); MEAN CORPUSCULAR VOLUME 97.1 fL (75.5-95.3); MONOCYTES # (AUTO) 0.8 K/uL (0.1-1.30); MONOCYTES % (AUTO) 6.5 % (0.0-11.0); NEUTROPHILS # (AUTO) 10.2 K/uL (1.8-8.9); NEUTROPHILS % (AUTO) 87.4 % (38.5-71.5); PLATELET COUNT (AUTO) 510 K/uL (179-408); RED BLOOD CELL COUNT(AUTO) 2.75 MIL/uL (3.63-4.92); RED CELL DISTRIBUTION WIDTH 13.6 % (12.3-17.7); WHITE BLOOD COUNT (AUTO) 11.7 K/uL (3.8-11.8)
[2025-03-24 08:00] VITALS: BP 109/57; TEMP 97.6; O2SAT 99
[2025-03-24] MEDS: MEDIHONEY= THERAHONEY 1.5 OZ TUBE TOP SCH (08:04)
[2025-03-24 13:14] LABS: PRE ALBUMIN 17.8 MG/DL (18.0-35.7)
[2025-03-24 16:00] VITALS: BP 101/51; TEMP 97.8; O2SAT 97
[2025-03-24] MEDS: SIMETHICONE 80 MG TAB.CHEW PO PRN (18:13)
[2025-03-24] MEDS ORDERED: MIRALAX 17 GM POWD.PACK PO SCH (21:45)
[2025-03-24] MEDS ORDERED: DOCUSATE SODIUM 100 MG CAPSULE PO SCH (21:45)
[2025-03-24 22:39] VITALS: BP 131/67; TEMP 98.4; O2SAT 94
[2025-03-24] MEDS: SENNOSIDES 1 TABLET PO SCH (22:51)
[2025-03-25 07:11] VITALS: BP 111/64; TEMP 98.2; O2SAT 93
[2025-03-25 08:00] VITALS: BP 128/72; TEMP 97.6; O2SAT 97
[2025-03-25 08:42] LABS: BASOPHILS # (AUTO) 0.1 K/UL (0.0-0.2); BASOPHILS % (AUTO) 0.9 % (0.0-2.0); EOSINOPHILS % (AUTO) 0.3 % (0.0-7.0); HEMATOCRIT 31.2 % (31.2-41.9); HEMOGLOBIN 10.5 g/dL (10.9-14.3); LYMPHOCYTES # (AUTO) 0.6 K/uL (0.8-4.8); LYMPHOCYTES % (AUTO) 4.7 % (20.5-51.5); MEAN CORPUSCULAR HEMOGLOBIN 32.9 uug (24.7-32.8); MEAN CORPUSCULAR HGB CONC 34 g/dL (32.3-35.6); MONOCYTES # (AUTO) 0.7 K/uL (0.1-1.30); MONOCYTES % (AUTO) 5.5 % (0.0-11.0); NEUTROPHILS # (AUTO) 10.9 K/uL (1.8-8.9); NEUTROPHILS % (AUTO) 88.6 % (38.5-71.5); PLATELET COUNT (AUTO) 482 K/uL (179-408); RED BLOOD CELL COUNT(AUTO) 3.18 MIL/uL (3.63-4.92); RED CELL DISTRIBUTION WIDTH 13.6 % (12.3-17.7); WHITE BLOOD COUNT (AUTO) 12.2 K/uL (3.8-11.8)
[2025-03-25 08:49] LABS: CALCIUM 8.8 mg/dL (8.5-10.1); CARBON DIOXIDE 28 mmol/L (21-32); CHLORIDE 100 mmol/L (98-107); CREATININE 0.8 mg/dL (0.6-1.3); GLUCOSE 113 mg/dL (74-106); PHOSPHOROUS 3.2 mg/dL (2.5-4.9); POTASSIUM 4.3 mmol/L (3.5-5.1); SODIUM SERUM 134 mmol/L (136-145); UREA NITROGEN, BLOOD 15 mg/dL (7-18)
[2025-03-25 08:51] LABS: DIFFERENTIAL COMMENT 1
[2025-03-25 16:00] VITALS: BP 109/51; TEMP 97; O2SAT 97
[2025-03-25 22:52] VITALS: BP 97/44; TEMP 98.8; O2SAT 93
[2025-03-26 07:21] VITALS: BP 111/50; TEMP 98.3; O2SAT 96
[2025-03-26 08:00] VITALS: BP 119/66; TEMP 98.1; O2SAT 95
[2025-03-26] MEDS: OXYCODONE HCL 10 MG TAB.SR.12H PO SCH (13:24)
[2025-03-26 15:38] VITALS: BP 114/64; TEMP 99; O2SAT 95
[2025-03-26 21:51] VITALS: BP 110/59; TEMP 99; O2SAT 93
[2025-03-27 07:22] LABS: BASOPHILS # (AUTO) 0.1 K/UL (0.0-0.2); BASOPHILS % (AUTO) 0.8 % (0.0-2.0); EOSINOPHILS # (AUTO) 0.1 K/uL (0.0-0.7); EOSINOPHILS % (AUTO) 0.7 % (0.0-7.0); HEMATOCRIT 24.8 % (31.2-41.9); HEMOGLOBIN 8.7 g/dL (10.9-14.3); LYMPHOCYTES # (AUTO) 0.6 K/uL (0.8-4.8); LYMPHOCYTES % (AUTO) 6.3 % (20.5-51.5); MEAN CORPUSCULAR HEMOGLOBIN 33.9 uug (24.7-32.8); MEAN CORPUSCULAR HGB CONC 35 g/dL (32.3-35.6); MEAN CORPUSCULAR VOLUME 97.1 fL (75.5-95.3); MONOCYTES # (AUTO) 0.8 K/uL (0.1-1.30); MONOCYTES % (AUTO) 7.5 % (0.0-11.0); NEUTROPHILS # (AUTO) 8.5 K/uL (1.8-8.9); NEUTROPHILS % (AUTO) 84.7 % (38.5-71.5); PLATELET COUNT (AUTO) 376 K/uL (179-408); RED BLOOD CELL COUNT(AUTO) 2.55 MIL/uL (3.63-4.92); RED CELL DISTRIBUTION WIDTH 13.5 % (12.3-17.7); WHITE BLOOD COUNT (AUTO) 10.1 K/uL (3.8-11.8)
[2025-03-27 07:29] LABS: CALCIUM 8.2 mg/dL (8.5-10.1); CARBON DIOXIDE 30 mmol/L (21-32); CHLORIDE 100 mmol/L (98-107); CREATININE 0.6 mg/dL (0.6-1.3); GLUCOSE 84 mg/dL (74-106); MAGNESIUM 1.7 mg/dL (1.8-2.4); PHOSPHOROUS 3.5 mg/dL (2.5-4.9); POTASSIUM 4.5 mmol/L (3.5-5.1); SODIUM SERUM 135 mmol/L (136-145); UREA NITROGEN, BLOOD 16 mg/dL (7-18)
[2025-03-27 07:30] LABS: DIFFERENTIAL COMMENT 1
[2025-03-27 07:40] VITALS: BP 101/57; TEMP 99; O2SAT 94
[2025-03-27 08:08] VITALS: BP 102/50; TEMP 98.4; O2SAT 96
[2025-03-27] MEDS: MAGNESIUM OXIDE 400 MG TABLET PO ONE (11:42)
[2025-03-27] MEDS ORDERED: MAGNESIUM OXIDE 400 MG TABLET PO ONE (12:30)
[2025-03-27] MEDS: TESTOSTERONE TOP SCH (12:38)
[2025-03-27] MEDS: [UNRECOGNIZED DRUG - OTHER] PO SCH (12:42)
[2025-03-27 16:15] VITALS: TEMP 97.8
[2025-03-27] MEDS: OXYCODONE HCL 5 MG TABLET PO PRN (17:57)
[2025-03-27] MEDS: PROGESTERONE 200 MG PO SCH (17:58)
[2025-03-27] MEDS: DOCUSATE SODIUM 100 MG CAPSULE PO SCH (18:05)
[2025-03-27 20:17] VITALS: BP 103/51; TEMP 98.2; O2SAT 94
[2025-03-27] MEDS: MELATONIN 12 MG PO SCH (21:56)
[2025-03-28 04:41] VITALS: BP 101/49; TEMP 98.2; O2SAT 95
[2025-03-28] MEDS: PRASTERONE 5 MG PO SCH (07:39)
[2025-03-28] MEDS: PREGNENOLONE PO SCH (07:39)
[2025-03-28] MEDS: [UNRECOGNIZED DRUG - MIXTURE] PO SCH (07:39)
[2025-03-28 08:00] VITALS: TEMP 99.2
[2025-03-28 16:42] VITALS: BP 103/60; TEMP 98.2; O2SAT 94
[2025-03-28 23:10] VITALS: BP 101/45; TEMP 97.9; O2SAT 94
[2025-03-29 06:00] VITALS: BP 102/61; TEMP 98.2; O2SAT 92
[2025-03-29 08:15] VITALS: BP 106/62; TEMP 98.5; O2SAT 95
[2025-03-29 16:05] VITALS: BP 101/54; TEMP 98.9; O2SAT 97
[2025-03-29 21:07] VITALS: BP 99/53; TEMP 98.6; O2SAT 96
[2025-03-30 07:25] LABS: BASOPHILS % (AUTO) 0.6 % (0.0-2.0); EOSINOPHILS # (AUTO) 0.1 K/uL (0.0-0.7); EOSINOPHILS % (AUTO) 1.5 % (0.0-7.0); HEMATOCRIT 22.9 % (31.2-41.9); LYMPHOCYTES # (AUTO) 0.6 K/uL (0.8-4.8); LYMPHOCYTES % (AUTO) 7.2 % (20.5-51.5); MEAN CORPUSCULAR HEMOGLOBIN 33.7 uug (24.7-32.8); MEAN CORPUSCULAR HGB CONC 35 g/dL (32.3-35.6); MEAN CORPUSCULAR VOLUME 95.9 fL (75.5-95.3); MONOCYTES # (AUTO) 0.8 K/uL (0.1-1.30); MONOCYTES % (AUTO) 10.1 % (0.0-11.0); NEUTROPHILS # (AUTO) 6.4 K/uL (1.8-8.9); NEUTROPHILS % (AUTO) 80.6 % (38.5-71.5); PLATELET COUNT (AUTO) 375 K/uL (179-408); RED CELL DISTRIBUTION WIDTH 12.9 % (12.3-17.7)
[2025-03-30 07:27] LABS: *BILIRUBIN,URIN NEGATIVE (NEGATIVE); *BLOOD, URINE 3+ (NEGATIVE); *CLARITY,URINE SLIGHTLY CLOUDY (CLEAR); *COLOR,URINE YELLOW (YELLOW); *KETONES,URINE NEGATIVE (NEGATIVE); *UROBILINOGEN,URINE 0.2 E.U./dl (NORMAL); LEUKOCYTE ESTERASE ,URINE 3+ (NEGATIVE); NITRITE, URINE POSITIVE (NEGATIVE); UGLUCOSE NEGATIVE (NEGATIVE)
[2025-03-30 07:32] LABS: DIFFERENTIAL COMMENT 1; RED BLOOD CELL COUNT(AUTO) 2.39 MIL/uL (3.63-4.92)
[2025-03-30 07:36] LABS: *PROTEIN,URINE 3+ (NEGATIVE); PH,URINE 8.5 (5.0-8.0)
[2025-03-30 07:37] VITALS: BP 102/56; TEMP 98.8; O2SAT 95
[2025-03-30 07:38] LABS: CALCIUM 8.3 mg/dL (8.5-10.1); CARBON DIOXIDE 29 mmol/L (21-32); CHLORIDE 101 mmol/L (98-107); CREATININE 0.6 mg/dL (0.6-1.3); GLUCOSE 142 mg/dL (74-106); MAGNESIUM 1.6 mg/dL (1.8-2.4); POTASSIUM 4.2 mmol/L (3.5-5.1); SODIUM SERUM 135 mmol/L (136-145); UREA NITROGEN, BLOOD 21 mg/dL (7-18)
[2025-03-30 07:58] LABS: BACTERIA,URINE MANY /HPF (NONE SEEN); RBC,URINE 20-50 /HPF (0-3); TRIPLE PHOSPHATE CRYSTAL,UR MANY /HPF (NONE SEEN)
[2025-03-30 07:59] LABS: URINE AMORPHOUS PHOSPHATES MANY /HPF
[2025-03-30] MEDS: MAGNESIUM OXIDE 400 MG TABLET PO ONE (10:37)
[2025-03-30] MEDS: ONDANSETRON HCL 4 MG TABLET PO PRN (12:12)
[2025-03-30 15:26] VITALS: BP 92/53; TEMP 98.8; O2SAT 94
[2025-03-30 20:09] VITALS: BP 104/55; TEMP 98.2; O2SAT 94
[2025-03-31 04:43] VITALS: BP 103/60; TEMP 98.1; O2SAT 93
[2025-03-31 08:00] VITALS: BP 102/54; TEMP 98.7; O2SAT 96
[2025-03-31 15:30] VITALS: BP 119/60; TEMP 98.8; O2SAT 96
[2025-03-31] MEDS: NITROFURANTOIN/NITROFURAN MAC 100 MG CAPSULE PO SCH (21:45)
[2025-03-31 22:51] VITALS: BP 92/44; TEMP 98; O2SAT 95
[2025-04-01 06:12] VITALS: BP 100/54; TEMP 99.4; O2SAT 0
[2025-04-01 07:05] VITALS: BP 100/54; TEMP 99.4; O2SAT 96
[2025-04-01 08:00] VITALS: BP_SYST 104; BP_SYST 92; BP_DIAS 49; BP_DIAS 59; TEMP 98.2; TEMP 98.8; O2SAT 94; O2SAT 95
[2025-04-01 16:06] VITALS: BP 109/59; TEMP 98.3; O2SAT 96
[2025-04-02 07:00] VITALS: BP 107/55; TEMP 97.7; O2SAT 98
[2025-04-02 07:47] LABS: BASOPHILS # (AUTO) 0.1 K/UL (0.0-0.2); BASOPHILS % (AUTO) 0.8 % (0.0-2.0); EOSINOPHILS # (AUTO) 0.1 K/uL (0.0-0.7); EOSINOPHILS % (AUTO) 1.5 % (0.0-7.0); HEMATOCRIT 23.5 % (31.2-41.9); LYMPHOCYTES # (AUTO) 0.6 K/uL (0.8-4.8); LYMPHOCYTES % (AUTO) 7.3 % (20.5-51.5); MEAN CORPUSCULAR HEMOGLOBIN 33.1 uug (24.7-32.8); MEAN CORPUSCULAR HGB CONC 34 g/dL (32.3-35.6); MEAN CORPUSCULAR VOLUME 97.1 fL (75.5-95.3); MONOCYTES # (AUTO) 0.8 K/uL (0.1-1.30); MONOCYTES % (AUTO) 8.9 % (0.0-11.0); NEUTROPHILS # (AUTO) 7.1 K/uL (1.8-8.9); NEUTROPHILS % (AUTO) 81.5 % (38.5-71.5); PLATELET COUNT (AUTO) 442 K/uL (179-408); RED CELL DISTRIBUTION WIDTH 13.3 % (12.3-17.7); WHITE BLOOD COUNT (AUTO) 8.8 K/uL (3.8-11.8)
[2025-04-02 07:51] LABS: DIFFERENTIAL COMMENT 1; RED BLOOD CELL COUNT(AUTO) 2.42 MIL/uL (3.63-4.92)
[2025-04-02 08:02] LABS: CALCIUM 8.5 mg/dL (8.5-10.1); CARBON DIOXIDE 31 mmol/L (21-32); CHLORIDE 101 mmol/L (98-107); CREATININE 0.5 mg/dL (0.6-1.3); GLUCOSE 88 mg/dL (74-106); MAGNESIUM 1.9 mg/dL (1.8-2.4); PHOSPHOROUS 3.9 mg/dL (2.5-4.9); POTASSIUM 4.5 mmol/L (3.5-5.1); SODIUM SERUM 137 mmol/L (136-145); UREA NITROGEN, BLOOD 20 mg/dL (7-18)
[2025-04-02 08:31] VITALS: BP 105/64; TEMP 98.5; O2SAT 95
[2025-04-02] MEDS: KETOROLAC TROMETHAMINE 15 MG INJ IM STA (11:31)
[2025-04-02 16:12] VITALS: BP 108/65; TEMP 98.6; O2SAT 95
[2025-04-02] MEDS: ARGININE/GLUTAMINE/CALCIUM BMB 1 EACH POWD.PACK PO SCH (16:41)
[2025-04-02] MEDS: SULFAMETH/TRIMETH 800/160 MG TABLET PO SCH (20:20)
[2025-04-02 21:37] VITALS: BP 94/55; TEMP 98.4; O2SAT 94
[2025-04-03 07:01] VITALS: BP 102/62; TEMP 98.9; O2SAT 95
[2025-04-03 07:45] VITALS: BP 118/66; TEMP 97; O2SAT 97
[2025-04-03 07:47] LABS: BASOPHILS # (AUTO) 0.1 K/UL (0.0-0.2); BASOPHILS % (AUTO) 0.7 % (0.0-2.0); EOSINOPHILS # (AUTO) 0.1 K/uL (0.0-0.7); EOSINOPHILS % (AUTO) 1.2 % (0.0-7.0); HEMATOCRIT 22.2 % (31.2-41.9); HEMOGLOBIN 7.7 g/dL (10.9-14.3); LYMPHOCYTES # (AUTO) 0.7 K/uL (0.8-4.8); LYMPHOCYTES % (AUTO) 7.9 % (20.5-51.5); MEAN CORPUSCULAR HEMOGLOBIN 33.2 uug (24.7-32.8); MEAN CORPUSCULAR HGB CONC 35 g/dL (32.3-35.6); MONOCYTES # (AUTO) 0.7 K/uL (0.1-1.30); MONOCYTES % (AUTO) 7.9 % (0.0-11.0); NEUTROPHILS # (AUTO) 7.3 K/uL (1.8-8.9); NEUTROPHILS % (AUTO) 82.3 % (38.5-71.5); PLATELET COUNT (AUTO) 465 K/uL (179-408); RED CELL DISTRIBUTION WIDTH 13.2 % (12.3-17.7); WHITE BLOOD COUNT (AUTO) 8.8 K/uL (3.8-11.8)
[2025-04-03 07:59] LABS: ALANINE AMINOTRANSFERASE 28 U/L (14-59); ALBUMIN 1.9 g/dL (3.4-5.0); ALKALINE PHOSPHATASE 171 U/L (50-136); ASPARTATE AMINOTRANSFERASE 23 U/L (15-37); BILIRUBIN,TOTAL 0.2 mg/dL (0.2-1.0); CALCIUM 9.1 mg/dL (8.5-10.1); CARBON DIOXIDE 29 mmol/L (21-32); CHLORIDE 101 mmol/L (98-107); CREATININE 0.6 mg/dL (0.6-1.3); GLUCOSE 103 mg/dL (74-106); POTASSIUM 4.5 mmol/L (3.5-5.1); SODIUM SERUM 136 mmol/L (136-145); UREA NITROGEN, BLOOD 26 mg/dL (7-18)
[2025-04-03 08:00] LABS: DIFFERENTIAL COMMENT 1; RED BLOOD CELL COUNT(AUTO) 2.32 MIL/uL (3.63-4.92)
[2025-04-03] MEDS: KETOROLAC TROMETHAMINE 15 MG INJ IM PRN (09:44)
[2025-04-03 15:56] LABS: HEMATOCRIT 22.2 % (31.2-41.9); HEMOGLOBIN 7.6 g/dL (10.9-14.3)
[2025-04-03 19:57] VITALS: BP 104/58; TEMP 98.7; O2SAT 95
[2025-04-04 04:45] LABS: HEMATOCRIT 22.6 % (31.2-41.9); HEMOGLOBIN 7.6 g/dL (10.9-14.3)
[2025-04-04 06:51] VITALS: BP 119/63; TEMP 98.6; O2SAT 96
[2025-04-04 08:16] VITALS: BP 119/66; TEMP 97.8; O2SAT 94
[2025-04-04 16:13] LABS: HEMATOCRIT 20.5 % (31.2-41.9); HEMOGLOBIN 7.1 g/dL (10.9-14.3)
[2025-04-04 16:49] VITALS: BP 107/63; TEMP 97.6; O2SAT 97
[2025-04-04 20:22] VITALS: BP 110/56; TEMP 98.1; O2SAT 95
[2025-04-05 04:19] LABS: HEMATOCRIT 21.1 % (31.2-41.9)
[2025-04-05 04:24] LABS: HEMOGLOBIN 7.2 g/dL (10.9-14.3)
[2025-04-05] MEDS: FERROUS SULFATE 325 MG TABEC PO SCH (05:10)
[2025-04-05 07:16] VITALS: BP 111/64; TEMP 98.9; O2SAT 95
[2025-04-05 07:45] LABS: BASOPHILS % (AUTO) 0.5 % (0.0-2.0); EOSINOPHILS # (AUTO) 0.1 K/uL (0.0-0.7); EOSINOPHILS % (AUTO) 1.2 % (0.0-7.0); HEMATOCRIT 22.3 % (31.2-41.9); HEMOGLOBIN 7.6 g/dL (10.9-14.3); LYMPHOCYTES # (AUTO) 0.7 K/uL (0.8-4.8); LYMPHOCYTES % (AUTO) 7.7 % (20.5-51.5); MEAN CORPUSCULAR HEMOGLOBIN 32.7 uug (24.7-32.8); MEAN CORPUSCULAR HGB CONC 34 g/dL (32.3-35.6); MEAN CORPUSCULAR VOLUME 96.2 fL (75.5-95.3); MONOCYTES # (AUTO) 0.8 K/uL (0.1-1.30); MONOCYTES % (AUTO) 9.6 % (0.0-11.0); NEUTROPHILS # (AUTO) 6.9 K/uL (1.8-8.9); PLATELET COUNT (AUTO) 488 K/uL (179-408); RED CELL DISTRIBUTION WIDTH 13.4 % (12.3-17.7); WHITE BLOOD COUNT (AUTO) 8.6 K/uL (3.8-11.8)
[2025-04-05 07:57] LABS: CALCIUM 8.4 mg/dL (8.5-10.1); CARBON DIOXIDE 28 mmol/L (21-32); CHLORIDE 101 mmol/L (98-107); CREATININE 0.7 mg/dL (0.6-1.3); DIFFERENTIAL COMMENT 1; GLUCOSE 116 mg/dL (74-106); MAGNESIUM 1.9 mg/dL (1.8-2.4); PHOSPHOROUS 4.3 mg/dL (2.5-4.9); POTASSIUM 5.3 mmol/L (3.5-5.1); RED BLOOD CELL COUNT(AUTO) 2.31 MIL/uL (3.63-4.92); SODIUM SERUM 136 mmol/L (136-145); UREA NITROGEN, BLOOD 27 mg/dL (7-18)
[2025-04-05 08:00] VITALS: BP 111/64; TEMP 98; O2SAT 95
[2025-04-05 09:00] VITALS: BP 111/64
[2025-04-05] MEDS ORDERED: FERROUS SULFATE 325 MG TABEC PO SCH (17:00)
== END 2025-04-05 14:50 | DRG 949 ==
PROVIDERS: ADMIT Physical Medicine & Rehabilitation; ATTEND Physical Medicine & Rehabilitation Pain Medicine
DX: Z48.815 Encounter for surgical aftercare following surgery on the digestive system (principal); E43 Unspecified severe protein-calorie malnutrition; K65.1 Peritoneal abscess; J96.01 Acute respiratory failure with hypoxia; K65.0 Generalized (acute) peritonitis; R65.21 Severe sepsis with septic shock; I16.1 Hypertensive emergency; I48.4 Atypical atrial flutter; K56.7 Ileus, unspecified; J90 Pleural effusion, not elsewhere classified; K57.20 Diverticulitis of large intestine with perforation and abscess without bleeding; N39.0 Urinary tract infection, site not specified; E87.0 Hyperosmolality and hypernatremia; K66.0 Peritoneal adhesions (postprocedural) (postinfection); Z93.3 Colostomy status; E87.70 Fluid overload, unspecified; D64.9 Anemia, unspecified; R31.0 Gross hematuria; D75.839 Thrombocytosis, unspecified; E88.09 Other disorders of plasma-protein metabolism, not elsewhere classified; I48.0 Paroxysmal atrial fibrillation; I10 Essential (primary) hypertension; Z90.49 Acquired absence of other specified parts of digestive tract; G89.29 Other chronic pain
CPT/HCPCS: 36415; 71045; 74018; 83735; 84100; 84132; 85018; 85025; 87077; 87086; 97161; 97535-GO-CO; J1885; J2270; J2405; J8597; Q0162